=== PATIENT | male | born 1965 | race Hispanic/Latino ===

== ENCOUNTER 2018-05-03 17:06 | Inpatient (IN) | payer MEDICAID ==
[2018-05-03 17:36] VITALS: BMI 26.6
[2018-05-03 18:03] LABS: BASO # 0.03 K/mm3 (0.0-2.0); BASO % 0.3 % (0.0-3.0); EOS # 0.1 (0.0-0.7); EOS % 1.2 % (1.5-5.0); LYMPH # 2.1 (1.2-3.4); LYMPH % 21.8 % (22.0-35.0); MEAN CORPUSCULAR HEMOGLOBIN 28.5 pg (25.0-35.0); MEAN CORPUSCULAR HGB CONC 33.5 g/dl (31.0-37.0); MEAN PLATELET VOLUME 9.8 fl (7.0-11.0); MONO # 0.6 (0.1-0.6); MONO % 6.4 % (1.0-6.0); RBC 5.27 10^6/uL (3.5-6.1); RED CELL DISTRIBUTION WIDTH 13.5 % (11.5-14.5); WHITE BLOOD COUNT 9.4 10^3/uL (4.5-11.0)
[2018-05-03 18:13] LABS: ALB/GLOB RATIO 1.3 (1.1-1.8); ALBUMIN 4.7 g/dL (3.0-4.8); ALT/SGPT 51 U/L (7-56); AST/SGOT 43 U/L (17-59); BLOOD UREA NITROGEN 19 mg/dL (7-21); CALCIUM 9.9 mg/dL (8.4-10.5); GFR NON-AFRICAN AMERICAN > 60
[2018-05-03] MEDS ORDERED: DiphenhydrAMINE 50 mg/ml Inj IVP STA (18:15)
--- NOTE | 2018-05-03 18:26 | ED PDOC ---
Arrival/HPI <Luci Lauren - Last Filed: 05/04/18 09:10> - General Historian: Patient - History of Present Illness Narrative History of Present Illness (Text): 05/03/18 18:20 A 53 year old male, whose past medical history includes panic attacks, presents to the emergency department complaining of panic attack. 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 States he feels anxious and shaky at this time. Patient denies any headache, dizziness, fever, chills, SI/HI, hallucinations, or any other complaints at this time. <Olga oCronado PA-C - Last Filed: 05/04/18 16:49> - General Chief Complaint: Psychiatric Evaluation Time Seen by Provider: 05/03/18 17:17 Past Medical History - Provider Review Nursing Documentation Reviewed: Yes - Psychiatric Hx Substance Use: No <Olga Coronado PA-C - Last Filed: 05/04/18 16:49> Family/Social History - Physician Review Nursing Documentation Reviewed: Yes Family/Social History: No Known Family HX Smoking Status: Unknown If Ever Smoked Hx Alcohol Use: No Hx Substance Use: No <Olga Coronado PA-C - Last Filed: 05/04/18 16:49> Allergies/Home Meds <Luci Lauren - Last Filed: 05/04/18 09:10> <Olga Coronado PA-C - Last Filed: 05/04/18 16:49> Allergies/Adverse Reactions: Allergies Unobtainable Allergy (Verified 05/03/18 17:28) Home Medications: Home Meds Medication Instructions Recorded Confirmed Unobtainable 05/03/18 05/03/18 Review of Systems - Physician Review All systems were reviewed & negative as marked: Yes - Review of Systems Constitutional: absent: Fevers, Night Sweats Respiratory: absent: SOB, Cough Cardiovascular: absent: Chest Pain Gastrointestinal: absent: Abdominal Pain, Diarrhea, Nausea, Vomiting Neurological: absent: Headache, Dizziness Psychiatric: Anxiety (panic attack). absent: Depression, Suicidal Ideation (and no HI), Other (no hallucinations) <Olga Coronado PA-C - Last Filed: 05/04/18 16:49> Physical Exam Vital Signs Temp Pulse Resp BP Pulse Ox 05/03/18 22:50 105 H 18 168/97 H 95 05/03/18 22:08 98 H 190/114 H 05/03/18 21:47 99 H 18 187/113 H 95 05/03/18 21:18 101 H 14 187/114 H 94 L 05/03/18 21:04 102 H 17 187/115 H 94 L 05/03/18 20:48 107 H 14 185/110 H 94 L 05/03/18 20:33 108 H 14 182/119 H 93 L 05/03/18 20:19 108 H 18 191/118 H 93 L 05/03/18 20:02 110 H 17 190/120 H 94 L 05/03/18 19:47 102 H 14 181/106 H 93 L 05/03/18 19:32 108 H 12 181/115 H 96 05/03/18 19:17 107 H 14 179/111 H 96 05/03/18 19:04 101 H 18 189/97 H 97 05/03/18 19:02 103 H 14 169/97 H 97 05/03/18 17:51 97.5 F L 106 H 18 163/99 H 93 L <Luci Lauren - Last Filed: 05/04/18 09:10> Vital Signs Reviewed: Yes Vital Signs Temp Pulse Resp BP Pulse Ox 05/03/18 17:51 97.5 F L 106 H 18 163/99 H 93 L Temperature: Afebrile Blood Pressure: Normal Pulse: Regular Respiratory Rate: Normal Appearance: Positive for: Well-Appearing, Non-Toxic, Comfortable Pain Distress: None Mental Status: Positive for: Alert and Oriented X 3 Finger Stick Blood Glucose: 138 - Systems Exam Head: Present: Atraumatic, Normocephalic Pupils: Present: PERRL Extroacular Muscles: Present: EOMI Conjunctiva: Present: Normal Mouth: Present: Moist Mucous Membranes Neck: Present: Normal Range of Motion Respiratory/Chest: Present: Clear to Auscultation, Good Air Exchange. No: Respiratory Distress, Accessory Muscle Use Cardiovascular: Present: Regular Rate and Rhythm, Normal S1, S2. No: Murmurs Abdomen: No: Tenderness, Distention, Peritoneal Signs Back: Present: Normal Inspection Upper Extremity: Present: Normal Inspection. No: Cyanosis, Edema Lower Extremity: Present: Normal Inspection. No: Edema Neurological: Present: GCS=15, CN II-XII Intact, Speech Normal Skin: Present: Warm, Dry, Normal Color. No: Rashes Psychiatric: Present: Alert, Oriented x 3, Normal Insight, Normal Concentration <Olga Coronado PA-C - Last Filed: 05/04/18 16:49> Medical Decision Making ED Course and Treatment: 05/04/18 09:10 Patient seen and evaluated with KAYA. History attempted from patient but also obtained from EMS personnel. Reportedly the patient called ambulance on his own stating he "had a a panic attack" and "took a bunch of pain pills". Patient is extremely difficulty to interview as he does not focus on questions or look at interviewer directly on initial evaluation. He will ambulate and walk to stretcher. He will also open his eyes to command and attempt to answer some ques tions in slow mumbled voice. He is afebrile. No signs of obvious trauma noted or reported. When asked if he was suicidal or attempted to intentionally overdose he closes his eyes and does not answer questions. He was placed on monitor and serial exams. He was noted to be tachycardic, hypertensive, flushed with serial exams. He reported generalized pain but was not specific. He was cooperative and not agitated in the ED. IV line and fluids administered. He was afebrile. Not tremulous. He was not able to specify what mediation or drugs he ingested. No respiratory distress noted. No focal weakness noted. No petechial rash. NO tremors. His acetmainophen level was found to be elevated. He is still unable to specify what medication he took with serial exams, or how much. Poison control consult ed. Acetadote ordered with consultation of poison control. He remains tachycardic although imporved. Hypertension persists but improved. Patient's EKG reveals sinus tahycardia with widened qrs. Bicarbonate ordered after consultation with poison control as there is no prior EKG to compare and cannot exclude any potential cardiotoxic ingestions. NO HYPOTENSION noted while in ED. His neruo status and interaction appears improved with serial exams. Will admit to ICU, case d/w Dr. Lvoe, thread cutter and Poison Control updated with patient's repeat EKG, exam and labs. - Critical Care Critical Care Minutes: 60 minutes - Lab Interpretations Lab Results: PT 12.3 SECONDS (9.4-12.5) 05/03/18 20:40 INR 1.11 05/03/18 20:40 APTT 38.8 Seconds (26.9-38.3) H 05/03/18 20:40 Troponin I < 0.01 ng/mL 05/04/18 05:40 Total Bilirubin 0.5 mg/dL (0.2-1.3) 05/04/18 05:40 AST 35 U/L (17-59) 05/04/18 05:40 ALT 43 U/L (7-56) 05/04/18 05:40 Alkaline Phosphatase 129 U/L (38-126) H D 05/04/18 05:40 Total Protein 7.4 g/dL (5.8-8.3) 05/04/18 05:40 Albumin 4.3 g/dL (3.0-4.8) 05/04/18 05:40 Globulin 3.1 gm/dL 05/04/18 05:40 Albumin/Globulin Ratio 1.4 (1.1-1.8) 05/04/18 05:40 Urine Color Yellow (YELLOW) 05/03/18 18:55 Urine Appearance Clear (CLEAR) 05/03/18 18:55 Urine pH 5.5 (4.7-8.0) 05/03/18 18:55 Ur Specific [place] >= 1.030 (1.005-1.035) 05/03/18 18:55 Urine Protein 30 mg/dL (<30 mg/dL) H 05/03/18 18:55 Urine Glucose (UA) Negative mg/dL (NEGATIVE) 05/03/18 18:55 Urine Ketones 15 mg/dL (NEGATIVE) H 05/03/18 18:55 Urine Blood Trace-intact (NEGATIVE) H 05/03/18 18:55 Urine Nitrate Negative (NEGATIVE) 05/03/18 18:55 Urine Bilirubin Moderate (NEGATIVE) H 05/03/18 18:55 Urine Urobilinogen 1.0 E.U./dL (<1 E.U./dL) H 05/03/18 18:55 Ur Leukocyte Esterase Negative John/uL (NEGATIVE) 05/03/18 18:55 Urine RBC 2 - 5 /hpf (0-2) H 05/03/18 18:55 Urine WBC 0 - 2 /hpf (0-6) 05/03/18 18:55 Ur Epithelial Cells None /hpf (0-5) 05/03/18 18:55 Urine Bacteria Few /hpf (NONE) 05/03/18 18:55 - RAD Interpretation Radiology Orders: 05/03/18 17:28 CHEST PORTABLE [RAD] Stat - Medication Orders Current Medication Orders: Hydralazine HCl (Apresoline) 10 mg IVP STAT WENDY Last Admin: 05/03/18 22:08 Dose: 10 mg IVP Administration Document 05/03/18 22:08 JOL (Rec: 05/03/18 22:09 [id number] Charges for Administration # of IVP Administrations 1 APR Pulse and Blood Pressure Document 05/03/18 22:08 JOL (Rec: 05/03/18 22:09 [id number]) Pulse Pulse Rate (60-90 beats/min) 98 Blood Pressure Blood Pressure (100/60-150/90 mm Hg) 190/114 Hydralazine HCl (Apresoline) 10 mg IVP Q6 PRN PRN Reason: Systolic Blood Pressure Acetylcysteine 7,930 mg/ (Dextrose) 1,039.65 mls @ 62.5 mls/hr IV .[id number] ONE Stop: 05/04/18 12:12 Last Admin: 05/04/18 01:40 Dose: 62.5 mls/hr eMAR Start Stop Document 05/04/18 01:40 MHA (Rec: 05/04/18 01:41 MHA [id number]) Intravenous Solution Start Date 05/04/18 Start Time 01:41 Lorazepam (Ativan) 1 mg IVP Q6H PRN; Protocol PRN Reason: Agitation Pantoprazole Sodium (Protonix Inj) 40 mg IVP DAILY WENDY Discontinued Medications Diphenhydramine HCl (Benadryl) 25 mg IVP STAT STA Stop: 05/03/18 18:16 Last Admin: 05/03/18 18:29 Dose: 25 mg IVP Administration Document 05/03/18 18:29 BB (Rec: 05/03/18 18:29 BB [id number]) Charges for Administration # of IVP Administrations 1 Famotidine (Pepcid) 20 mg IVP STAT STA Stop: 05/03/18 18:14 Last Admin: 05/03/18 18:29 Dose: 20 mg IVP Administration Document 05/03/18 18:29 BB (Rec: 05/03/18 18:29 BB [id number]) Charges for Administration # of IVP Administrations 1 Acetylcysteine 11,895 mg/ (Dextrose) 259.475 mls @ 200 mls/hr IV .Q1H18M ONE Stop: 05/03/18 20:45 Last Admin: 05/03/18 20:08 Dose: 200 mls/hr eMAR Start Stop Document 05/03/18 20:08 JOL (Rec: 05/03/18 20:09 JOL [id number]) Intravenous Solution Start Date 05/03/18 Start Time 20:08 End Date 05/03/18 End time 21:26 Total Infusion Time 78 Acetylcysteine 3,965 mg/ (Dextrose) 519.825 mls @ 125 mls/hr IV .Q4H10M ONE Stop: 05/03/18 23:43 Last Admin: 05/03/18 21:18 Dose: 125 mls/hr eMAR Start Stop Document 05/03/18 21:18 JOL (Rec: 05/03/18 21:19 JOL [id number]) Intravenous Solution Start Date 05/03/18 Start Time 21:18 End Date 05/04/18 End time 01:28 Total Infusion Time 250 Magnesium Sulfate/Dextrose (Magnesium Sulfate 1 Gm/100 Ml D5w) 1 gm in 100 mls @ 100 mls/hr IVPB ONCE ONE Stop: 05/03/18 20:58 Last Admin: 05/03/18 20:09 Dose: 100 mls/hr eMAR Start Stop Document 05/03/18 20:09 JOL (Rec: 05/03/18 20:09 JOL [id number]) Intravenous Solution Start Date 05/03/18 Start Time 20:09 End Date 05/03/18 End time 21:09 Total Infusion Time 60 Methylprednisolone (Solu-Medrol) 125 mg IVP ONCE ONE Stop: 05/03/18 18:14 Last Admin: 05/03/18 18:28 Dose: 125 mg IVP Administration Document 05/03/18 18:28 BB (Rec: 05/03/18 18:28 BB [id number]) Charges for Administration # of IVP Administrations 1 Promethazine HCl (Phenergan Inj) 25 mg IM ONCE ONE Stop: 05/03/18 23:54 Last Admin: 05/04/18 00:19 Dose: 25 mg IM Administration Charges Document 05/04/18 00:19 KGD (Rec: 05/04/18 00:25 KGD [id number]) Injection Site MAR Injection Site Left Deltoid Charges for Administration # of IM Administrations 1 Sodium Bicarbonate (Sodium Bicarbonate 8.4% (50 Meq) Syringe) 80 meq IVP ONCE ONE Stop: 05/03/18 19:57 Last Admin: 05/03/18 20:09 Dose: 80 meq IVP Administration Document 05/03/18 20:09 JOL (Rec: 05/03/18 20:09 JOL [id number]) Charges for Administration # of IVP Administrations 1 Sodium Bicarbonate (Sodium Bicarbonate 8.4% (50 Meq) Syringe) 80 meq IVP ONCE ONE Stop: 05/03/18 20:30 Last Admin: 05/03/18 20:33 Dose: 80 meq IVP Administration Document 05/03/18 20:33 JOL (Rec: 05/03/18 20:33 JOL [id number]) Charges for Administration # of IVP Administrations 1 <Luci Lauren - Last Filed: 05/04/18 09:10> ED Course and Treatment: 05/03/18 18:22 Impression: 53 year old male brought in for panic attack. Plan: -- EKG -- Chest X-ray -- Labs -- Urinalysis -- Fingerstick -- Reassess and disposition Progress Notes: 05/03/18 18:20 After EKG was performed, nurse noticed a red, itchy rash all over chest and arms. Currently erythematous rash blanches to trunk and upper extremities. Benadryl, Pepcid, and SOLU-Medrol ordered. FS : 138. CXR : NAD. 1st EKG : ST at 106 bpm, with LAD, LBBB, QRS duration 142 ms, QTc 496 ms. Labs reviewed. Utox : +tylenol level of 99, salicylates <1 19:30 Case was d/w Amol from Poison control, he recommends treatment with acetadote, he advises to give acetadote 1 hr drip, followed by acetadote 4 hr drip, then acetadote 16 hr drip, then he advises to have repeat labs to be done 2 hrs prior to ending of acetadote 16 hr drip, he states to repeat LFTs, INR, and tylenol level. He also recommends giving bicarb 1mEq/kg IVP, considering that the patient's QRS and QTc is prolonged, then to repeat EKG immediately after. He states that if the QRS and QTc is still prolonged to give a 2nd dose of bicarb 1 mEq/kg IVP followed by another repeat EKG. If after 2 treatment of bicarb and there is no improvement of the QRS and QTc interval, then to stop giving bicarb. He also recommends giving Mg IV to raise the patient's Mg level above 2. Bicarb 1 mEq/kg IVP given. Repeat 2nd EKG : ST at 108 bpm, QRS duration 144 ms, QTc 493 ms. 2nd bicarb 1 mEq/kg IVP given. Repeat 3rd EKG : ST at 105 bpm, QRS duration 138 ms, QTc 515 ms. Mg IV 1 g ordered and given. On re-evaluation, patient remains awake, alert, still tachycardic and hypertensive. Rest of the labs reveal, UDS : +opiates/amphetamines/cannabis. +Amphetamines, maybe the likely cause of patient's tachycardia and hypertension. 19:50 Case d/w Dr. [place] and the medical insurance verifier, agrees with plan to admit to ICU, notified of treatment recommended by poison control, which he agrees with. Suggested to Dr. [place] and the medical insurance verifier cardiology consult for abnormal EKG findings. - Lab Interpretations Lab Results: Total Bilirubin 0.8 mg/dL (0.2-1.3) 05/03/18 17:34 AST 43 U/L (17-59) 05/03/18 17:34 ALT 51 U/L (7-56) 05/03/18 17:34 Alkaline Phosphatase 171 U/L (38-126) H 05/03/18 17:34 Total Protein 8.3 g/dL (5.8-8.3) 05/03/18 17:34 Albumin 4.7 g/dL (3.0-4.8) 05/03/18 17:34 Globulin 3.6 gm/dL 05/03/18 17:34 Albumin/Globulin Ratio 1.3 (1.1-1.8) 05/03/18 17:34 - RAD Interpretation Radiology Orders: 05/03/18 17:28 CHEST PORTABLE [RAD] Stat - Medication Orders Current Medication Orders: Discontinued Medications Diphenhydramine HCl (Benadryl) 25 mg IVP STAT STA Stop: 05/03/18 18:16 Famotidine (Pepcid) 20 mg IVP STAT STA Stop: 05/03/18 18:14 Methylprednisolone (Solu-Medrol) 125 mg IVP ONCE ONE Stop: 05/03/18 18:14 <Olga Coronado PA-C - Last Filed: 05/04/18 16:49> - PA / [employer] / Resident Statement MD/DO has reviewed & agrees with the documentation as recorded. - Scribe Statement The provider has reviewed the documentation as recorded by the Vesna Sheets Provider Scribe Attestation: All medical record entries made by the Scribe were at my direction and personally dictated by me. I have reviewed the chart and agree that the record accurately reflects my personal performance of the history, physical exam, medical decision making, and the department course for this patient. I have also personally directed, reviewed, and agree with the discharge instructions and disposition. <Olga Coronado PA-C - Last Filed: 05/04/18 16:49> Disposition/Present on Arrival - Present on Arrival Any Indicators Present on Arrival: No - Disposition Have Diagnosis and Disposition been Completed?: Yes <Luci Lauren - Last Filed: 05/04/18 09:10> - Present on Arrival History of DVT/PE: No History of Uncontrolled Diabetes: No Urinary Catheter: No History of Decub. Ulcer: No History Surgical Site Infection Following: None - Disposition Disposition Time: 20:00 Patient Plan: ICU <Olga Coronado PA-C - Last Filed: 05/04/18 16:49> - Disposition Diagnosis: Tylenol overdose, Amphetamine abuse, Drug abuse, Hypertension Disposition: HOSPITALIZED Patient Problems: Current Active Problems Problem Status Onset Tylenol overdose Acute Amphetamine abuse Acute Drug abuse Acute Hypertension Acute Condition: CRITICAL
--- NOTE | 2018-05-03 18:35 | RAD ---
Date of service: 05/03/2018 HISTORY: possible overdose COMPARISON: No prior. FINDINGS: LUNGS: No active pulmonary disease. Patient is rotated toward the left somewhat accentuating right hilar vascular markings slightly. PLEURA: No significant pleural effusion identified, no pneumothorax apparent. CARDIOVASCULAR: No aortic atherosclerotic calcification present. Normal cardiac size. No pulmonary vascular congestion. OSSEOUS STRUCTURES: No significant abnormalities. VISUALIZED UPPER ABDOMEN: Normal. OTHER FINDINGS: None. IMPRESSION: No acute cardiopulmonary disease appreciated.
[2018-05-03 18:59] LABS: PH,URINE 5.5 (4.7-8.0); URINE BILIRUBIN MODERATE (NEGATIVE); URINE BLOOD TRACE-INTACT (NEGATIVE); URINE GLUCOSE (UA) NEGATIVE (NEGATIVE); URINE LEUKOCYTE ESTERASE NEGATIVE Leu/uL (NEGATIVE); URINE PROTEIN 30 mg/dL (<30 mg/dL)
[2018-05-03 19:03] LABS: URINE APPEARANCE CLEAR (CLEAR); URINE COLOR YELLOW (YELLOW)
[2018-05-03 19:06] LABS: URINE BACTERIA FEW /hpf; URINE WBC 0 - 2 /hpf (0-6)
[2018-05-03 19:24] LABS: PHENCYCLIDINE, UR NEGATIVE (NEGATIVE)
[2018-05-03] MEDS ORDERED: ACETYLCYSTEINE IV ONE ×3 (19:28→19:34)
[2018-05-03] MEDS ORDERED: WATER IV ONE ×3 (19:28→19:34)
[2018-05-03] MEDS ORDERED: DEXTROSE 5% IV ONE ×3 (19:28→19:34)
[2018-05-03 19:43] LABS: SALICYLATE < 1 mg/dL (2.0-20.0)
[2018-05-03] MEDS ORDERED: Sodium Bicarbonate (8.4%) 50 Meq Syringe IVP ONE ×3 (19:56→20:29)
[2018-05-03] MEDS ORDERED: Magnesium Sulfate 1 gm in D5W 1 GM/100 ML BAG IVPB ONE (19:59)
[2018-05-03 20:04] LABS: BARBITURATES, UR NEGATIVE (NEGATIVE); BENZODIAZEPINES, UR NEGATIVE (NEGATIVE)
[2018-05-03 20:05] LABS: OPIATES, UR POSITIVE (NEGATIVE)
[2018-05-03 20:54] LABS: INR 1.11; PARTIAL THROMBOPLASTIN TIME 38.8 Seconds (26.9-38.3); PROTHROMBIN TIME 12.3 SECONDS (9.4-12.5)
[2018-05-03] MEDS ORDERED: Sodium Chloride 0.9% 1,000 ML IV SCH (21:30)
--- NOTE | 2018-05-03 21:51 | CP.PCM.HP ---
<Winnie Aragon - Last Filed: 05/03/18 21:55> History of Present Illness - History of Present Illness History of Present Illness: Winnie Aragon, PGY2, H&P for Dr Montana: CC: panic attack This is a 53 year old male, with PMH depression, panic disorder, herniated discs, is here for a panic attack. Patient reports that he was at home ([facility]) this afternoon, when he started having a panic attack, he took a "bunch of painkillers to help him relax." He states that he received those pills from his neurologist. Then, his neighbor called the ambulance for him. He reports feeling mildly confused, but denies dizziness, syncope, chest pain, nausea, vomiting, fevers, chills, headache, neck pain, sob, abdominal pain, urinary symptoms, leg swelling. Patient reports that he has been feeling down, and does think about hurting himself. Denies homicidal ideations or plan. In ED, vitals stable except for high BP 180s/110s, tylenol level elevated 99, UDS positive for opiates and cannabinoids. EKG showed sinus tachycardia 106 with widened qrs 142 ms and prolonged qtc 496 ms. Poison control called, started on NAC and given 2 doses of sodium bicarb with repeat EKG with qrs 138 ms and qtc 515 ms. Will monitor for now. ROS limited as patient is still confused, uncooperative. PMH: panic disorder, depression, restless leg syndrome, herniated discs PSH: sinus surgery (8 years ago), left knee surgery - torn meniscal tear (20 years ago) All: NKA FH: denies SH: lives by self, currently at [facility]. Quit drinking 20 years ago. + tobacco user, smokes 1 ppd x 35 years. Smokes marijuana daily. Quit heroin, cocaine 10 years ago, used to snort, denies IV drug use. Home Meds: prozac, wellbutrin, pramipexole PMD: [facility] (in [place]) Neurologist: Wes ( in [place]) Present on Admission - Present on Admission Any Indicators Present on Admission: No History of DVT/PE: No History of Uncontrolled Diabetes: No Urinary Catheter: No Decubitus Ulcer Present: No Review of Systems - Review of Systems Systems not reviewed;Unavailable: Altered Mental Status, Intoxicated Past Patient History - Past Social History Smoking Status: Unknown If Ever Smoked - PSYCHIATRIC Hx Substance Use: No - SURGICAL HISTORY Hx Surgeries: No Meds Allergies/Adverse Reactions: Allergies Allergy/AdvReac Type Severity Reaction Status Date / Time Unobtainable Allergy Verified 05/03/18 17:28 Physical Exam - Constitutional Appears: Non-toxic, No Acute Distress - Head Exam Head Exam: ATRAUMATIC, NORMOCEPHALIC - Eye Exam Eye Exam: EOMI, PERRL. absent: Conjunctival injection, Nystagmus, Scleral icterus Pupil Exam: NORMAL ACCOMODATION, PERRL. absent: Irregular, Miosis, Unequal - ENT Exam ENT Exam: Mucous Membranes Dry - Neck Exam Neck exam: Positive for: Full Rom - Respiratory Exam Respiratory Exam: Clear to Auscultation Bilateral, NORMAL BREATHING PATTERN. absent: Accessory Muscle Use, Rhonchi, Wheezes, Stridor - Cardiovascular Exam Cardiovascular Exam: Tachycardia, +S1, +S2. absent: Systolic Murmur - GI/Abdominal Exam GI & Abdominal Exam: Normal Bowel Sounds, Soft. absent: Distended, Firm, Guarding, Organomegaly, Rebound, Tenderness - Extremities Exam Extremities exam: Positive for: normal inspection. Negative for: calf tenderness, pedal edema - Back Exam Back exam: NORMAL INSPECTION - Neurological Exam Neurological exam: Alert Additional comments: oriented to place, situation - Psychiatric Exam Psychiatric exam: Flat Affect - Skin Skin Exam: Normal Color, Warm Results - Vital Signs Recent Vital Signs: Last Vital Signs Temp 97.5 F L 05/03/18 17:51 Pulse 101 H 05/03/18 19:04 Resp 18 05/03/18 19:04 BP 189/97 H 05/03/18 19:04 Pulse Ox 97 05/03/18 19:04 - Labs Result Diagrams: 05/03/18 17:34 05/03/18 17:34 Labs: Laboratory Results - last 24 hr 05/03/18 05/03/18 05/03/18 17:34 17:34 17:34 WBC 9.4 RBC 5.27 Hgb 15.0 Hct 44.8 MCV 85.0 MCH 28.5 MCHC 33.5 RDW 13.5 Plt Count 439 MPV 9.8 Neut % (Auto) 70.3 H Lymph % (Auto) 21.8 L Kerr % (Auto) 6.4 H Eos % (Auto) 1.2 L Baso % (Auto) 0.3 Lymph # (Auto) 2.1 Kerr # (Auto) 0.6 Eos # (Auto) 0.1 Baso # (Auto) 0.03 Absolute Neuts (auto) 6.61 H PT INR APTT Sodium 139 Potassium 4.2 Chloride 102 Carbon Dioxide 24 Anion Gap 16 BUN 19 Creatinine 0.9 Est GFR ( Amer) > 60 Est GFR (Non-Af Amer) > 60 POC Glucose (mg/dL) Random Glucose 160 H Calcium 9.9 Magnesium 1.9 Total Bilirubin 0.8 AST 43 ALT 51 Alkaline Phosphatase 171 H Total Protein 8.3 Albumin 4.7 Globulin 3.6 Albumin/Globulin Ratio 1.3 Urine Color Urine Appearance Urine pH Ur Specific [place] Urine Protein Urine Glucose (UA) Urine Ketones Urine Blood Urine Nitrate Urine Bilirubin Urine Urobilinogen Ur Leukocyte Esterase Urine RBC Urine WBC Ur Epithelial Cells Urine Bacteria Salicylates < 1 L Urine Opiates Screen Urine Methadone Screen Acetaminophen 99.0 H* Ur Barbiturates Screen Ur Phencyclidine Scrn Ur Amphetamines Screen U Benzodiazepines Scrn U Oth Cocaine Metabols U Cannabinoids Screen Alcohol, Quantitative 05/03/18 05/03/18 05/03/18 17:34 18:05 18:55 WBC RBC Hgb Hct MCV MCH MCHC RDW Plt Count MPV Neut % (Auto) Lymph % (Auto) Kerr % (Auto) Eos % (Auto) Baso % (Auto) Lymph # (Auto) Kerr # (Auto) Eos # (Auto) Baso # (Auto) Absolute Neuts (auto) PT INR APTT Sodium Potassium Chloride Carbon Dioxide Anion Gap BUN Creatinine Est GFR ( Amer) Est GFR (Non-Af Amer) POC Glucose (mg/dL) 138 H Random Glucose Calcium Magnesium Total Bilirubin AST ALT Alkaline Phosphatase Total Protein Albumin Globulin Albumin/Globulin Ratio Urine Color Yellow Urine Appearance Clear Urine pH 5.5 Ur Specific [place] >= 1.030 Urine Protein 30 H Urine Glucose (UA) Negative Urine Ketones 15 H Urine Blood Trace-intact H Urine Nitrate Negative Urine Bilirubin Moderate H Urine Urobilinogen 1.0 H Ur Leukocyte Esterase Negative Urine RBC 2 - 5 H Urine WBC 0 - 2 Ur Epithelial Cells None Urine Bacteria Few Salicylates Urine Opiates Screen Urine Methadone Screen Acetaminophen Ur Barbiturates Screen Ur Phencyclidine Scrn Ur Amphetamines Screen U Benzodiazepines Scrn U Oth Cocaine Metabols U Cannabinoids Screen Alcohol, Quantitative < 10 05/03/18 05/03/18 18:55 20:40 WBC RBC Hgb Hct MCV MCH MCHC RDW Plt Count MPV Neut % (Auto) Lymph % (Auto) Kerr % (Auto) Eos % (Auto) Baso % (Auto) Lymph # (Auto) Kerr # (Auto) Eos # (Auto) Baso # (Auto) Absolute Neuts (auto) PT 12.3 INR 1.11 APTT 38.8 H Sodium Potassium Chloride Carbon Dioxide Anion Gap BUN Creatinine Est GFR ( Amer) Est GFR (Non-Af Amer) POC Glucose (mg/dL) Random Glucose Calcium Magnesium Total Bilirubin AST ALT Alkaline Phosphatase Total Protein Albumin Globulin Albumin/Globulin Ratio Urine Color Urine Appearance Urine pH Ur Specific [place] Urine Protein Urine Glucose (UA) Urine Ketones Urine Blood Urine Nitrate Urine Bilirubin Urine Urobilinogen Ur Leukocyte Esterase Urine RBC Urine WBC Ur Epithelial Cells Urine Bacteria Salicylates Urine Opiates Screen Positive H Urine Methadone Screen Negative Acetaminophen Ur Barbiturates Screen Negative Ur Phencyclidine Scrn Negative Ur Amphetamines Screen Positive H U Benzodiazepines Scrn Negative U Oth Cocaine Metabols Negative U Cannabinoids Screen Positive H Alcohol, Quantitative Assessment & Plan - Assessment and Plan (Free Text) Assessment: This is a 53 year old male with PMH panic disorder, depression, restless leg syndrome, herniated discs, is here for panic disorder, suicidal ideations, found to have tylenol overdose, admitted to ICU for further observation: Tylenol overdose: - Tylenol level 99 - UDS positive for opiates, tylenol, cannabinoids - AST/ALT within normal limits, ALP 171. continue to monitor. - initial troponin negative. F/u troponin q6h - initial EKG shows HR 106, Sinus tachycardia, QRS 142 ms, QTc 496 ms. - Mg 1.9 - ED called poison control, advised to keep Mag>2.0, give NAC x 3 treatments, give Sodium bicarbonate for prolonged qrs and repeat ekg after to note any changes. If no changes noted, continue to monitor. Instructed to get LFTs, tylenol level, INR at 16th of 18th hour of NAC infusion. - EKG after 2 doses of bicarb shows HR 105, sinus tachycardia, QRS 138 ms, qtc 515 ms. - Will repeat EKG in AM. - tylenol, cmp in AM. - GI Dr Loomis consulted. follow up recs. Suicidal ideations: - 1:1 observation - Psychiatry consulted. follow up recs. - Advised nursing staff that patient cannot leave AMA. - continue to monitor closely High blood pressure: - BP 187/113, will give hydralazine prn - continue to monitor PPX: protonix, scds Will monitor in ICU NPO Case seen, discussed with attending, Dr Montana. <Gabby Montana - Last Filed: 05/04/18 00:33> Results - Vital Signs Recent Vital Signs: Last Vital Signs Temp 98.6 F 05/03/18 23:36 Pulse 105 H 05/03/18 22:50 Resp 24 05/03/18 23:36 BP 168/97 H 05/03/18 22:50 Pulse Ox 95 05/03/18 22:50 - Labs Result Diagrams: 05/03/18 17:34 05/03/18 17:34 Labs: Laboratory Results - last 24 hr 05/03/18 05/03/18 05/03/18 17:34 17:34 17:34 WBC 9.4 RBC 5.27 Hgb 15.0 Hct 44.8 MCV 85.0 MCH 28.5 MCHC 33.5 RDW 13.5 Plt Count 439 MPV 9.8 Neut % (Auto) 70.3 H Lymph % (Auto) 21.8 L Kerr % (Auto) 6.4 H Eos % (Auto) 1.2 L Baso % (Auto) 0.3 Lymph # (Auto) 2.1 Kerr # (Auto) 0.6 Eos # (Auto) 0.1 Baso # (Auto) 0.03 Absolute Neuts (auto) 6.61 H PT INR APTT Sodium 139 Potassium 4.2 Chloride 102 Carbon Dioxide 24 Anion Gap 16 BUN 19 Creatinine 0.9 Est GFR ( Amer) > 60 Est GFR (Non-Af Amer) > 60 POC Glucose (mg/dL) Random Glucose 160 H Calcium 9.9 Magnesium 1.9 Total Bilirubin 0.8 AST 43 ALT 51 Alkaline Phosphatase 171 H Troponin I Total Protein 8.3 Albumin 4.7 Globulin 3.6 Albumin/Globulin Ratio 1.3 Urine Color Urine Appearance Urine pH Ur Specific [place] Urine Protein Urine Glucose (UA) Urine Ketones Urine Blood Urine Nitrate Urine Bilirubin Urine Urobilinogen Ur Leukocyte Esterase Urine RBC Urine WBC Ur Epithelial Cells Urine Bacteria Salicylates < 1 L Urine Opiates Screen Urine Methadone Screen Acetaminophen 99.0 H* Ur Barbiturates Screen Ur Phencyclidine Scrn Ur Amphetamines Screen U Benzodiazepines Scrn U Oth Cocaine Metabols U Cannabinoids Screen Alcohol, Quantitative 05/03/18 05/03/18 05/03/18 17:34 17:34 18:05 WBC RBC Hgb Hct MCV MCH MCHC RDW Plt Count MPV Neut % (Auto) Lymph % (Auto) Kerr % (Auto) Eos % (Auto) Baso % (Auto) Lymph # (Auto) Kerr # (Auto) Eos # (Auto) Baso # (Auto) Absolute Neuts (auto) PT INR APTT Sodium Potassium Chloride Carbon Dioxide Anion Gap BUN Creatinine Est GFR ( Amer) Est GFR (Non-Af Amer) POC Glucose (mg/dL) 138 H Random Glucose Calcium Magnesium Total Bilirubin AST ALT Alkaline Phosphatase Troponin I < 0.01 Total Protein Albumin Globulin Albumin/Globulin Ratio Urine Color Urine Appearance Urine pH Ur Specific [place] Urine Protein Urine Glucose (UA) Urine Ketones Urine Blood Urine Nitrate Urine Bilirubin Urine Urobilinogen Ur Leukocyte Esterase Urine RBC Urine WBC Ur Epithelial Cells Urine Bacteria Salicylates Urine Opiates Screen Urine Methadone Screen Acetaminophen Ur Barbiturates Screen Ur Phencyclidine Scrn Ur Amphetamines Screen U Benzodiazepines Scrn U Oth Cocaine Metabols U Cannabinoids Screen Alcohol, Quantitative < 10 05/03/18 05/03/18 05/03/18 18:55 18:55 20:40 WBC RBC Hgb Hct MCV MCH MCHC RDW Plt Count MPV Neut % (Auto) Lymph % (Auto) Kerr % (Auto) Eos % (Auto) Baso % (Auto) Lymph # (Auto) Kerr # (Auto) Eos # (Auto) Baso # (Auto) Absolute Neuts (auto) PT 12.3 INR 1.11 APTT 38.8 H Sodium Potassium Chloride Carbon Dioxide Anion Gap BUN Creatinine Est GFR ( Amer) Est GFR (Non-Af Amer) POC Glucose (mg/dL) Random Glucose Calcium Magnesium Total Bilirubin AST ALT Alkaline Phosphatase Troponin I Total Protein Albumin Globulin Albumin/Globulin Ratio Urine Color Yellow Urine Appearance Clear Urine pH 5.5 Ur Specific [place] >= 1.030 Urine Protein 30 H Urine Glucose (UA) Negative Urine Ketones 15 H Urine Blood Trace-intact H Urine Nitrate Negative Urine Bilirubin Moderate H Urine Urobilinogen 1.0 H Ur Leukocyte Esterase Negative Urine RBC 2 - 5 H Urine WBC 0 - 2 Ur Epithelial Cells None Urine Bacteria Few Salicylates Urine Opiates Screen Positive H Urine Methadone Screen Negative Acetaminophen Ur Barbiturates Screen Negative Ur Phencyclidine Scrn Negative Ur Amphetamines Screen Positive H U Benzodiazepines Scrn Negative U Oth Cocaine Metabols Negative U Cannabinoids Screen Positive H Alcohol, Quantitative Attending/Attestation - Attestation I have personally seen and examined this patient.: Yes I have fully participated in the care of the patient.: Yes I have reviewed all pertinent clinical information: Yes Notes (Text): 05/04/18 00:32 seen and examined. Discussed with resident. Agree with note.
[2018-05-03] MEDS ORDERED: Dexmedetomidine 400mcg/100mL 400 MCG/100 ML BOTTLE IV PRN (23:37)
--- NOTE | 2018-05-04 00:39 | CP.PCM.PN ---
<Winnie Aragon - Last Filed: 05/04/18 00:37> Subjective - Date & Time of Evaluation Date of Evaluation: 05/04/18 Time of Evaluation: 00:37 - Subjective Subjective: Ramirez gutierrez called on the patient as patient was agitated and trying to leave. Nurse, security guards at bedside. Explained to patient the need to stay and receive treatment. Promethazone 20 mg IM given x1. Patient more cooperative, calmer, in bed. Soft restraints in place. Continue to monitor. ativan 1 mg IV q6 prn agitation in place. Objective - Vital Signs/Intake and Output Vital Signs (last 24 hours): Temp Pulse Resp BP Pulse Ox 98.6 F 105 H 24 168/97 H 95 05/03/18 23:36 05/03/18 22:50 05/03/18 23:36 05/03/18 22:50 05/03/18 22:50 - Medications Medications: Current Medications Hydralazine HCl (Apresoline) 10 mg IVP STAT WENDY Last Admin: 05/03/18 22:08 Dose: 10 mg Hydralazine HCl (Apresoline) 10 mg IVP Q6 PRN PRN Reason: Systolic Blood Pressure Acetylcysteine 7,930 mg/ (Dextrose) 1,039.65 mls @ 62.5 mls/hr IV .[id number] ONE Stop: 05/04/18 12:12 Lorazepam (Ativan) 1 mg IVP Q6H PRN; Protocol PRN Reason: Agitation Pantoprazole Sodium (Protonix Inj) 40 mg IVP DAILY WENDY - Labs Labs: 05/03/18 17:34 05/03/18 17:34 PT 12.3 SECONDS (9.4-12.5) 05/03/18 20:40 INR 1.11 05/03/18 20:40 APTT 38.8 Seconds (26.9-38.3) H 05/03/18 20:40 <Gabby Montana - Last Filed: 05/04/18 06:41> Objective - Vital Signs/Intake and Output Vital Signs (last 24 hours): Temp Pulse Resp BP Pulse Ox 98.6 F 101 H 20 145/103 H 94 L 05/03/18 23:36 05/04/18 05:30 05/04/18 05:30 05/04/18 05:30 05/04/18 05:30 - Medications Medications: Current Medications Hydralazine HCl (Apresoline) 10 mg IVP STAT WENDY Last Admin: 05/03/18 22:08 Dose: 10 mg Hydralazine HCl (Apresoline) 10 mg IVP Q6 PRN PRN Reason: Systolic Blood Pressure Acetylcysteine 7,930 mg/ (Dextrose) 1,039.65 mls @ 62.5 mls/hr IV .[id number] ONE Stop: 05/04/18 12:12 Last Admin: 05/04/18 01:40 Dose: 62.5 mls/hr Lorazepam (Ativan) 1 mg IVP Q6H PRN; Protocol PRN Reason: Agitation Pantoprazole Sodium (Protonix Inj) 40 mg IVP DAILY WENDY - Labs Labs: 05/04/18 05:40 05/03/18 17:34 PT 12.3 SECONDS (9.4-12.5) 05/03/18 20:40 INR 1.11 05/03/18 20:40 APTT 38.8 Seconds (26.9-38.3) H 05/03/18 20:40 Attending/Attestation - Attestation I have personally seen and examined this patient.: No I have fully participated in the care of the patient.: Yes I have reviewed all pertinent clinical information, including history, physical exam and plan: Yes Notes (Text): 05/04/18 06:41 not seen during code dukes.
[2018-05-04 06:25] LABS: BASO # 0.02 K/mm3 (0.0-2.0); BASO % 0.3 % (0.0-3.0); HEMOGLOBIN 14.8 g/dL (14.0-18.0); LYMPH # 1.1 (1.2-3.4); LYMPH % 14.5 % (22.0-35.0); MEAN CELL VOLUME 83.3 fl (80.0-105.0); MEAN CORPUSCULAR HEMOGLOBIN 28.5 pg (25.0-35.0); MEAN CORPUSCULAR HGB CONC 34.2 g/dl (31.0-37.0); MEAN PLATELET VOLUME 9.7 fl (7.0-11.0); MONO # 0.2 (0.1-0.6); MONO % 2.6 % (1.0-6.0); RBC 5.2 10^6/uL (3.5-6.1); RED CELL DISTRIBUTION WIDTH 13.5 % (11.5-14.5); WHITE BLOOD COUNT 7.6 10^3/uL (4.5-11.0)
[2018-05-04 06:47] LABS: TROPONIN I < 0.01 ng/mL
[2018-05-04 07:42] LABS: ALB/GLOB RATIO 1.4 (1.1-1.8); ALBUMIN 4.3 g/dL (3.0-4.8); ALT/SGPT 43 U/L (7-56); AST/SGOT 35 U/L (17-59); BLOOD UREA NITROGEN 13 mg/dL (7-21); CALCIUM 9.4 mg/dL (8.4-10.5); GFR NON-AFRICAN AMERICAN > 60
--- NOTE | 2018-05-04 10:37 | PN ---
DATE: 05/04/2018 [employer] TECHNICAL MANAGER NOTE AT [facility] SUBJECTIVE: The patient is resting in bed, became very anxious and combative this morning, Ramirez Harris was called. The patient was given medications to relax. He had demanded to leave the hospital at that time. The patient now is sleeping. No respiratory distress. No complaints of pain. He did present initially with panic attacks and labs had shown that he had a Tylenol overdose as well as having other drugs such as amphetamines and cannabinoids in his bloodstream. PHYSICAL EXAMINATION VITAL SIGNS: Note that his temperature is 98.6, pulse is 78, respirations are 16, and BP is 162/86. SKIN: Warm and dry. HEENT: Head atraumatic, normocephalic. Eyes reactive to light. Ear, nose and throat seem to be within normal limits. NECK: Supple. No JVD. No thyroid enlargement. No lymph nodes. CARDIOPULMONARY: Heart has a regular rate and rhythm. Normal S1, S2. LUNGS: Reveal good breath sounds bilaterally. ABDOMEN: Soft, nontender. Normal bowel sounds. No organomegaly noted. GENITALIA: Deferred. RECTAL: Deferred. MUSCULOSKELETAL: No joint deformities. EXTREMITIES: Reveal no edema. NEUROLOGIC: He seems to be grossly intact. LABORATORY DATA: His white count is 7.6, hemoglobin is 14.8, hematocrit 43.3, with platelets of 437,000. Sodium is 137, potassium 4.0, chloride 101, CO2 of 25, with a BUN of 13, creatinine is 0.5, and a glucose of 149. The patient's chest x-ray is within normal limits. Toxicology reveals that urine opioid screen was positive. The patient has a high level of Tylenol and positive for amphetamines as well as cannabinoids. As stated above, his chest x-ray is normal. IMPRESSION: This patient presents with a Tylenol overdose and also has panic attacks and anxiety. The patient has cannabinoids as well as amphetamines in his bloodstream as well. PLAN: The patient is a one-to-one observation at this time. A Psychiatric consult and GI consult has been called. The patient is on acetylcysteine protocol for Tylenol overdose and is getting Apresoline for blood pressure. As stated above, he is one-to-one. He is also on Ativan p.r.n. and getting Protonix. At this time, we will follow closely and treat aggressively along with the other consultants and the primary care doctor. Edwin Daugherty MD
--- NOTE | 2018-05-04 12:02 | CP.PCM.PN ---
<Zen Brothers - Last Filed: 05/04/18 12:29> Subjective - Date & Time of Evaluation Date of Evaluation: 05/04/18 Time of Evaluation: 11:58 - Subjective Subjective: PGY-1 Medicine progress note for Dr. Beth Patient seen and examined at bedside. 1:1 sitter at bedside. Patient denies any fevers, shortness of breath, chest pain, abdominal pain, nausea, vomiting, or any other complaints. Objective - Vital Signs/Intake and Output Vital Signs (last 24 hours): Temp Pulse Resp BP Pulse Ox 98.6 F 73 107 H 140/77 91 L 05/03/18 23:36 05/04/18 10:37 05/04/18 09:30 05/04/18 10:37 05/04/18 09:30 - Medications Medications: Current Medications Hydralazine HCl (Apresoline) 10 mg IVP STAT [facility] Last Admin: 05/03/18 22:08 Dose: 10 mg Hydralazine HCl (Apresoline) 10 mg IVP Q6 PRN PRN Reason: Systolic Blood Pressure Acetylcysteine 7,930 mg/ (Dextrose) 1,039.65 mls @ 62.5 mls/hr IV .[id number] ONE Stop: 05/04/18 12:12 Last Admin: 05/04/18 01:40 Dose: 62.5 mls/hr Lisinopril (Zestril) 10 mg PO DAILY [facility] Last Admin: 05/04/18 10:37 Dose: 10 mg Lorazepam (Ativan) 1 mg IVP Q6H PRN; Protocol PRN Reason: Agitation Pantoprazole Sodium (Protonix Inj) 40 mg IVP DAILY [facility] Last Admin: 05/04/18 09:21 Dose: 40 mg - Labs Labs: 05/04/18 05:40 05/04/18 05:40 PT 12.3 SECONDS (9.4-12.5) 05/03/18 20:40 INR 1.11 05/03/18 20:40 APTT 38.8 Seconds (26.9-38.3) H 05/03/18 20:40 - Constitutional Appears: Well, Non-toxic, No Acute Distress - Head Exam Head Exam: ATRAUMATIC, NORMAL INSPECTION - Eye Exam Eye Exam: EOMI, PERRL Pupil Exam: NORMAL ACCOMODATION, PERRL - ENT Exam ENT Exam: Mucous Membranes Moist - Neck Exam Neck Exam: Normal Inspection - Respiratory Exam Respiratory Exam: Clear to Ausculation Bilateral. absent: Rales, Rhonchi, Wheezes, Respiratory Distress - Cardiovascular Exam Cardiovascular Exam: RRR, +S1, +S2. absent: Gallop, Rubs, Murmur - GI/Abdominal Exam GI & Abdominal Exam: Soft, Normal Bowel Sounds. absent: Tenderness - Extremities Exam Extremities Exam: absent: Calf Tenderness, Pedal Edema - Neurological Exam Neurological Exam: Alert, Awake, CN II-XII Intact - Psychiatric Exam Psychiatric exam: Flat Affect - Skin Skin Exam: Dry, Intact, Normal Color, Warm Assessment and Plan - Assessment and Plan (Free Text) Assessment: Patient is a 53 year old male with PMH panic disorder, depression, restless leg syndrome, herniated discs, is here for panic disorder, suicidal ideations, found to have tylenol overdose, admitted to ICU for further observation. Plan: Tylenol overdose: - Tylenol level <10 now - UDS positive for opiates, amphetamines, cannabinoids - AST/ALT within normal limits, ALP 171. continue to monitor. - Troponins negative X 2 - Keep Mag>2.0 - Mg 2.2 - Give NAC x 3 treatments - Repeat CMP, Mg, INR: pending - GI consulted, Dr. Loomis Suicidal ideations: - 1:1 observation - Psychiatry consulted - Advised nursing staff that patient cannot leave AMA - Continue to monitor closely High blood pressure: - Hydralazine prn - Continue to monitor PPX: protonix, scds Patient seen and case discussed with attending, Dr. Kirit Brothers, PGY-1 <Leyla Beth - Last Filed: 05/04/18 13:03> Objective - Vital Signs/Intake and Output Vital Signs (last 24 hours): Temp Pulse Resp BP Pulse Ox 98.6 F 73 107 H 140/77 91 L 05/03/18 23:36 05/04/18 10:37 05/04/18 09:30 05/04/18 10:37 05/04/18 09:30 - Medications Medications: Current Medications Aripiprazole (Abilify) 5 mg PO HS WENDY Bupropion HCl (Wellbutrin) 100 mg PO DAILY WENDY Fluoxetine HCl (Prozac) 20 mg PO DAILY [facility] Hydralazine HCl (Apresoline) 10 mg IVP Q6 PRN PRN Reason: Systolic Blood Pressure Lisinopril (Zestril) 10 mg PO DAILY [facility] Last Admin: 05/04/18 10:37 Dose: 10 mg Lorazepam (Ativan) 1 mg IVP Q6H PRN; Protocol PRN Reason: Agitation Pantoprazole Sodium (Protonix Inj) 40 mg IVP DAILY [facility] Last Admin: 05/04/18 09:21 Dose: 40 mg - Labs Labs: 05/04/18 05:40 05/04/18 05:40 PT 12.3 SECONDS (9.4-12.5) 05/03/18 20:40 INR 1.11 05/03/18 20:40 APTT 38.8 Seconds (26.9-38.3) H 05/03/18 20:40 Attending/Attestation - Attestation I have personally seen and examined this patient.: Yes I have fully participated in the care of the patient.: Yes I have reviewed all pertinent clinical information, including history, physical exam and plan: Yes Notes (Text): 05/04/18 12:59 Medical record note made by the resident after discussion with my direction and input after the patient was personally seen and examined by me. I have reviewed the chart and agree that the record accurately reflects by personal performance of the history, physical exam, data review, and medical decision-making, in the course for the patient. I have also personally directed the plan of care. 53 year old male with PMH of panic disorder, depression, restless leg syndrome, herniated discs, was admitted last night with panic disorder, suicidal ideation, had intention drug overdose, he is found to have Tylenol overdose, also has Opiate and Amphetamine on urine toxicology, LFT are normal, Patient is on IV acetylcysteine for tylelonol overdose. We will monitor LFT, EKG showe LBBB,blood pressure is running highj, we will add Lisinopril and will also get 2D Echo. Patient is on 1.1 observation..
[2018-05-04 15:48] LABS: ALB/GLOB RATIO 1.3 (1.1-1.8); ALT/SGPT 36 U/L (7-56); AST/SGOT 25 U/L (17-59); BLOOD UREA NITROGEN 14 mg/dL (7-21); CALCIUM 9.6 mg/dL (8.4-10.5); GFR NON-AFRICAN AMERICAN > 60
[2018-05-04 16:16] LABS: INR 1.18; PROTHROMBIN TIME 13.1 SECONDS (9.4-12.5)
--- NOTE | 2018-05-04 18:51 | CON ---
DATE: 05/04/2018 HISTORY OF PRESENT ILLNESS: The patient is a homosexual male who presented to the ER complaining of panic attacks and depression. While he was there he declared he took a handful of unknown pills, though he believed they were painkillers 1 hour prior to admission. The patient reported that he got suicidal thoughts at times and was admitted to the ICU after a similar incident now looking back in 99. The UDS is positive for opioids, amphetamines as well as marijuana. Psychiatry was consulted due to the patient's presentation. He was initially brought in as a Damien Harris, but had indicated his actual name is Nick Benitez. I met with the patient at the bedside in the ICU. The patient is alert and oriented to month, year, circumstances, and location. He is calm and generally cooperative and appears to be in good control. Affect is constricted. The patient can communicate with me well, although he does appear to be evasive and guarded at times about the circumstances, though admits to taking the pills, he eventually admits that it was a suicide attempt. The patient is reluctant to take psychiatric hospitalization, but he is open to it in consideration of his worsening depression and stresses at this time. Apparently, the patient lost his apartment of 13 years a couple of months ago and has currently been living at the [facility], which is not pleasant. He also has been dabbling in drugs and admits to smoking weed as well as using crystal meth weeks ago. He does report that he is now in recovery for alcohol, however, this alcohol problem became a cocaine problem, which became the recreational drug that he is now taking. He admits he is no longer suicidal to this health underwriter, I cannot confirm this and the patient does have a history of prior suicide attempts and hospitalizations at [facility] and [facility]. Presently, as I mentioned he is in fair control, he is coherent. There is no hallucinations. Insight and judgment are considered to be fair. Impulse control is tenuous. PSYCHIATRIC HISTORY: The patient reports prior hospitalizations at [facility] and [facility] a couple of years ago. He is in treatment with Dr. Otero at [facility] for the last 9 months. MEDICATIONS: Reports that he is being prescribed Prozac 20 mg daily, Wellbutrin 100 mg, and Abilify 2 mg which he indicates he is compliant with. SOCIAL HISTORY: The patient was born and raised in [place] . He is single. He is homosexual. He has no children. He lives by himself with a for the last couple of months after being evicted from his apartment of 13 years. He is unemployed. He is currently seeking disability for the last 6 years. He has a history of alcohol dependency which began a cocaine dependency after he stopped drinking alcohol and he stopped taking cocaine and this turned into smoking weed and using crystal meth. Opiates were also found in his urine drug screen. Vital signs and labs were reviewed. RELEVANT PSYCHIATRIC MEDICATIONS: The patient is not on any psychiatric medications except for Ativan 1 mg every 6 hours p.r.n. IMPRESSION: Major depressive disorder, substance induced mood disorder, amphetamine and marijuana abuse, rule out opiate dependency versus abuse, rule out borderline personality disorder, rule out adjustment disorder with depression and anxiety. RECOMMENDATIONS: At this time, the patient needs to be hospitalized and requires one-to-one as he is unpredictable. The patient is open to psychiatric hospitalization, however, he is aware that if he does not sign in voluntarily for screening then involuntary commitment by the [facility] screeners will be requested. Psychiatry will continue to follow up. Next followup will be on 05/05/2018. In the meantime, Prozac, Wellbutrin, and Abilify will be restarted at the low values that were aforementioned. Pepper Chaney MD
--- NOTE | 2018-05-04 19:50 | CARD ---
APPROVED REPORT Date of service: 05/03/2018 EKG Measurement Heart [id number] [place] [id number] <Conclusion> Sinus tachycardia Possible Left atrial enlargement Indeterminate axis Nonspecific intraventricular block Anterolateral infarct, age undetermined Abnormal ECG
--- NOTE | 2018-05-04 19:52 | CARD ---
APPROVED REPORT Date of service: 05/03/2018 EKG Measurement Heart [id number] 170P57 [id number] <Conclusion> Sinus tachycardia Possible Left atrial enlargement Left axis deviation Left bundle branch block Abnormal ECG
--- NOTE | 2018-05-04 20:31 | CON ---
DATE OF CONSULTATION: 05/04/2018 REQUESTING PHYSICIAN: Carlos Low MD REASON FOR CONSULTATION: I have been asked to see this 53-year-old patient who has a history of depression, panic disorder, who took a bunch of pain killers to help him deal with his depression and panic disorder. The patient states that he took 10 Tylenol with Codeine. On admission to the hospital, his acetaminophen level was elevated at 99, this morning it is less than 10. He also had positive opiates, amphetamines and cannabinoids. The patient states that this was not a suicide attempt. The patient was started immediately on N-acetylcysteine. He currently denies any nausea, vomiting or abdominal pain. His liver enzymes are normal. PAST MEDICAL HISTORY: Notable for depression, panic disorder, restless legs syndrome, herniated disks. PAST SURGICAL HISTORY: Notable for knee surgery and sinus surgery. SOCIAL HISTORY: The patient lives at the [facility]. He is a former alcohol abuser. He has smoked up to a pack of cigarettes per day for 35 years. He smokes marijuana. He is a former heroin user. MEDICATIONS AT HOME: Prozac, Wellbutrin and pramipexole. PHYSICAL EXAMINATION: GENERAL: Middle-aged male lying in bed, awake, alert, in no acute distress. VITAL SIGNS: He is afebrile. Blood pressure 140/77, heart rate of 73. HEENT: Reveal sclerae to be white. Conjunctivae pink. NECK: Supple. CHEST: Lungs are clear. HEART: Regular rate and rhythm. ABDOMEN: Soft, nontender. No mass. EXTREMITIES: No edema. LABORATORY DATA: White blood cell count 7.6, hemoglobin 14.8. AST and ALT normal, total bilirubin normal, alkaline phosphatase of 129. IMPRESSION: This is a 53-year-old male with acetaminophen overdose with normal liver enzymes. RECOMMENDATIONS: 1. Complete dosing of N-acetylcysteine. 2. Follow liver enzymes for another 24-48 hours. Damien Loomis MD
--- NOTE | 2018-05-04 22:33 | CARD ---
APPROVED REPORT Date of service: 05/04/2018 EKG Measurement Heart [id number] [id number] <Conclusion> Normal sinus rhythm with sinus arrhythmia Possible Left atrial enlargement Left axis deviation Left bundle branch block Abnormal ECG
--- NOTE | 2018-05-04 22:45 | CARD ---
APPROVED REPORT Date of service: 05/04/2018 EKG Measurement Heart [id number] 170P56 [id number] <Conclusion> Sinus rhythm with marked sinus arrhythmia Possible Left atrial enlargement Left axis deviation Left bundle branch block Abnormal ECG
[2018-05-05] MEDS: Pantoprazole 40 mg EC Tab PO SCH (07:00)
[2018-05-05 07:01] LABS: BASO # 0.02 K/mm3 (0.0-2.0); BASO % 0.2 % (0.0-3.0); EOS # 0.1 (0.0-0.7); EOS % 1.4 % (1.5-5.0); HEMOGLOBIN 13.8 g/dL (14.0-18.0); LYMPH # 3.3 (1.2-3.4); LYMPH % 37.3 % (22.0-35.0); MEAN CELL VOLUME 85.2 fl (80.0-105.0); MEAN CORPUSCULAR HGB CONC 32.9 g/dl (31.0-37.0); MEAN PLATELET VOLUME 9.5 fl (7.0-11.0); MONO # 0.7 (0.1-0.6); MONO % 7.6 % (1.0-6.0); RBC 4.92 10^6/uL (3.5-6.1); WHITE BLOOD COUNT 8.9 10^3/uL (4.5-11.0)
[2018-05-05 07:03] LABS: ALB/GLOB RATIO 1.3 (1.1-1.8); ALBUMIN 3.8 g/dL (3.0-4.8); ALT/SGPT 35 U/L (7-56); AST/SGOT 30 U/L (17-59); BLOOD UREA NITROGEN 19 mg/dL (7-21); CALCIUM 9.1 mg/dL (8.4-10.5); GFR NON-AFRICAN AMERICAN > 60
--- NOTE | 2018-05-05 08:56 | CP.PCM.PN ---
<Ludwin Delatorre - Last Filed: 05/05/18 13:05> Subjective - Date & Time of Evaluation Date of Evaluation: 05/05/18 Time of Evaluation: 08:53 - Subjective Subjective: Medicine Progress Note for Dr. Velasquez 52M seen and evaluated at bedside this morning. No acute events overnight. No complaints this morning. Patient stated he would like to go home. Will need to follow up with psychiatry regarding voluntary vs. involuntary psychiatric placement. Denies f/c, n/v/d, SOB, CP, headaches, dizziness, abdominal pain, or urinary symptoms. Objective - Vital Signs/Intake and Output Vital Signs (last 24 hours): Temp Pulse Resp BP Pulse Ox 98.9 F 74 107 H 140/77 91 L 05/04/18 23:36 05/04/18 18:00 05/04/18 09:30 05/04/18 10:37 05/04/18 09:30 - Medications Medications: Current Medications Aripiprazole (Abilify) 5 mg PO HS [facility] Last Admin: 05/04/18 21:47 Dose: 5 mg Bupropion HCl (Wellbutrin) 100 mg PO DAILY [facility] Fluoxetine HCl (Prozac) 20 mg PO DAILY [facility] Hydralazine HCl (Apresoline) 10 mg IVP Q6 PRN PRN Reason: Systolic Blood Pressure Lisinopril (Zestril) 10 mg PO DAILY [facility] Last Admin: 05/04/18 10:37 Dose: 10 mg Lorazepam (Ativan) 1 mg IVP Q6H PRN; Protocol PRN Reason: Agitation Pantoprazole Sodium (Protonix Ec Tab) 40 mg PO 0600 [facility] Last Admin: 05/05/18 07:00 Dose: 40 mg - Labs Labs: 05/05/18 06:30 05/05/18 06:30 PT 13.1 SECONDS (9.4-12.5) H 05/04/18 15:44 INR 1.18 05/04/18 15:44 APTT 38.8 Seconds (26.9-38.3) H 05/03/18 20:40 - Constitutional Appears: Well, Non-toxic, No Acute Distress - Head Exam Head Exam: ATRAUMATIC, NORMAL INSPECTION, NORMOCEPHALIC - Eye Exam Eye Exam: EOMI - ENT Exam ENT Exam: Mucous Membranes Moist - Respiratory Exam Respiratory Exam: NORMAL BREATHING PATTERN. absent: Respiratory Distress - Cardiovascular Exam Cardiovascular Exam: REGULAR RHYTHM. absent: Tachycardia - GI/Abdominal Exam GI & Abdominal Exam: Soft, Normal Bowel Sounds. absent: Distended, Guarding, Tenderness, Rebound - Neurological Exam Neurological Exam: Alert, Awake, Oriented x3 - Psychiatric Exam Psychiatric exam: Flat Affect - Skin Skin Exam: Dry, Intact, Normal Color, Warm Assessment and Plan - Assessment and Plan (Free Text) Assessment: 53M, PMH of panic disorder, depression, restless leg syndrome, herniated discs, and multi-substance abuse, admitted for Tylenol overdose. Plan: Tylenol Overdose - N-acetylcysteine drip completed - Patient tylenol levels <10 - AST/ALT wnl today - Daily labs, trend LFTs - F/u poison control - F/u any further GI recommendations New onset High Blood Pressure - Lisinopril 10mg PO QD - F/u ECHO - Repeat EKG: NSR, LBBB, Left axis deviation - Monitor vitals Suicidal Ideations - F/u psychiatry regarding voluntary vs involuntary placement - Advised nursing staff that patient cannot leave AMA - Continue medications per psychiatry's discretion - Ativan PRN - Continue 1:1 sitter PPX DVT: SCDs GI: Protonix HHD Patient plan discussed with Dr. Ron Delatorre PGY1 <Zakia Velasquez - Last Filed: 05/05/18 14:40> Objective - Vital Signs/Intake and Output Vital Signs (last 24 hours): Temp Pulse Resp BP Pulse Ox 98.9 F 88 20 120/59 L 97 05/04/18 23:36 05/05/18 11:10 05/05/18 10:59 05/05/18 11:00 05/05/18 11:10 - Medications Medications: Current Medications Aripiprazole (Abilify) 5 mg PO HS [facility] Last Admin: 05/04/18 21:47 Dose: 5 mg Bupropion HCl (Wellbutrin) 100 mg PO DAILY [facility] Last Admin: 05/05/18 10:27 Dose: 100 mg Fluoxetine HCl (Prozac) 20 mg PO DAILY [facility] Last Admin: 05/05/18 10:26 Dose: 20 mg Hydralazine HCl (Apresoline) 10 mg IVP Q6 PRN PRN Reason: Systolic Blood Pressure Lisinopril (Zestril) 10 mg PO DAILY [facility] Last Admin: 05/05/18 10:00 Dose: Not Given Lorazepam (Ativan) 1 mg IVP Q6H PRN; Protocol PRN Reason: Agitation Pantoprazole Sodium (Protonix Ec Tab) 40 mg PO 0600 [facility] Last Admin: 05/05/18 07:00 Dose: 40 mg - Labs Labs: 05/05/18 06:30 05/05/18 06:30 PT 13.1 SECONDS (9.4-12.5) H 05/04/18 15:44 INR 1.18 05/04/18 15:44 APTT 38.8 Seconds (26.9-38.3) H 05/03/18 20:40 Attending/Attestation - Attestation I have personally seen and examined this patient.: Yes I have fully participated in the care of the patient.: Yes I have reviewed all pertinent clinical information, including history, physical exam and plan: Yes Notes (Text): 05/05/18 14:35 53 year old male with past medical history of panic disorder, depression, restless leg syndronme and substance abuse who presented with tylenol overdose. He is s/p NAC drip. Tylenol level has come down. LFTs are normal. GI is following. UTox was also positive for opiates, amphetamine and cocaine. Patient was counselled on risks of continued substance abuse. Patient was started on lisinopril with improvement of blood pressure. Echocardiogram is pending. Patient is currently on 1:1 observation. Psychiatry is following; will follow up with recommendations. Zakia Velasquez MD Hospitalist.
--- NOTE | 2018-05-05 12:05 | CP.PCM.PN ---
<Nestor Hsieh - Last Filed: 05/05/18 13:32> Subjective - Date & Time of Evaluation Date of Evaluation: 05/05/18 Time of Evaluation: 08:00 - Subjective Subjective: Pt seen and examined this morning in the ICU. Pt reports feeling much better, although lethargic. Denies chest pain or SOB. Objective - Vital Signs/Intake and Output Vital Signs (last 24 hours): Temp Pulse Resp BP Pulse Ox 98.9 F 66 107 H 121/66 91 L 05/04/18 23:36 05/05/18 10:27 05/04/18 09:30 05/05/18 10:27 05/04/18 09:30 - Medications Medications: Current Medications Aripiprazole (Abilify) 5 mg PO [facility] Last Admin: 05/04/18 21:47 Dose: 5 mg Bupropion HCl (Wellbutrin) 100 mg PO DAILY [facility] Last Admin: 05/05/18 10:27 Dose: 100 mg Fluoxetine HCl (Prozac) 20 mg PO DAILY [facility] Last Admin: 05/05/18 10:26 Dose: 20 mg Hydralazine HCl (Apresoline) 10 mg IVP Q6 PRN PRN Reason: Systolic Blood Pressure Lisinopril (Zestril) 10 mg PO DAILY [facility] Last Admin: 05/05/18 10:27 Dose: 10 mg Lorazepam (Ativan) 1 mg IVP Q6H PRN; Protocol PRN Reason: Agitation Pantoprazole Sodium (Protonix Ec Tab) 40 mg PO 0600 [facility] Last Admin: 05/05/18 07:00 Dose: 40 mg - Labs Labs: 05/05/18 06:30 05/05/18 06:30 PT 13.1 SECONDS (9.4-12.5) H 05/04/18 15:44 INR 1.18 05/04/18 15:44 APTT 38.8 Seconds (26.9-38.3) H 05/03/18 20:40 - Constitutional Appears: No Acute Distress - Head Exam Head Exam: ATRAUMATIC, NORMOCEPHALIC - Eye Exam Eye Exam: EOMI - ENT Exam ENT Exam: Mucous Membranes Moist - Neck Exam Neck Exam: Full ROM - Respiratory Exam Respiratory Exam: Clear to Ausculation Bilateral, NORMAL BREATHING PATTERN. absent: Accessory Muscle Use, Respiratory Distress - Cardiovascular Exam Cardiovascular Exam: RRR, +S1, +S2. absent: Diastolic murmur, Murmur - GI/Abdominal Exam GI & Abdominal Exam: Soft, Normal Bowel Sounds - Extremities Exam Extremities Exam: Full ROM. absent: Calf Tenderness - Neurological Exam Neurological Exam: Alert, Awake, Oriented x3 - Psychiatric Exam Psychiatric exam: Normal Affect, Normal Mood - Skin Skin Exam: Dry, Intact, Warm Assessment and Plan - Assessment and Plan (Free Text) Assessment: Pt is a 52 yo male with a PMH of Bipolar disorder and poly substance abuse who presented to the ED complaining of a panic attack after ingesting 10 Tylenol #3 tablets. Plan: Neuro - AOx3 Cadio - Maintain MAP >65 - hydralazine Pulm: - Maintain O2 sat >92 GI - Tylenol level was 99 on admission but has resolved to <10 at this time. - LFT's are WNL - GI consulted, Dr Loomis Heme/Onc - H/H stable, continue to monitor Nephro - renal function is stable - Cr 0.7 - BUN 19 Endo - Maintain euglycemia ID - no signs of infection at this time Psyc - continue 1:1 sitter at this time - continue psyc meds as per psyc - psyc following,m Dr Chaney Dispo: pt to be transferred to med surg Pt seen, examined, assessment and plan discussed with Dr Zeeshan Hsieh PGY1, Internal Medicine Resident <Jos Byers - Last Filed: 05/05/18 16:29> Objective - Vital Signs/Intake and Output Vital Signs (last 24 hours): Temp Pulse Resp BP Pulse Ox 98.9 F 74 40 H 116/51 L 94 L 05/04/18 23:36 05/05/18 14:49 05/05/18 14:49 05/05/18 14:30 05/05/18 14:40 Intake and Output: 05/05/18 05/05/18 06:59 18:59 Output Total 400 Balance -400 - Medications Medications: Current Medications Aripiprazole (Abilify) 5 mg PO HS [facility] Last Admin: 05/04/18 21:47 Dose: 5 mg Bupropion HCl (Wellbutrin) 100 mg PO DAILY [facility] Last Admin: 05/05/18 10:27 Dose: 100 mg Fluoxetine HCl (Prozac) 20 mg PO DAILY [facility] Last Admin: 05/05/18 10:26 Dose: 20 mg Hydralazine HCl (Apresoline) 10 mg IVP Q6 PRN PRN Reason: Systolic Blood Pressure Lisinopril (Zestril) 10 mg PO DAILY [facility] Last Admin: 05/05/18 10:00 Dose: Not Given Lorazepam (Ativan) 1 mg IVP Q6H PRN; Protocol PRN Reason: Agitation Pantoprazole Sodium (Protonix Ec Tab) 40 mg PO 0600 [facility] Last Admin: 05/05/18 07:00 Dose: 40 mg - Labs Labs: 05/05/18 06:30 05/05/18 06:30 PT 13.1 SECONDS (9.4-12.5) H 05/04/18 15:44 INR 1.18 05/04/18 15:44 APTT 38.8 Seconds (26.9-38.3) H 05/03/18 20:40 Attending/Attestation - Attestation I have personally seen and examined this patient.: Yes I have fully participated in the care of the patient.: Yes I have reviewed all pertinent clinical information, including history, physical exam and plan: Yes Notes (Text): 05/05/18 16:28 52 yo with multidrug overdose, including APAP, who received 3 doses of NAC. doing well. alert awake and oriented x 3. QTc 450, spoke with poison control-->nothign to add. spoked with psych-->cont 1:1. [facility] min
--- NOTE | 2018-05-05 12:42 | CARD ---
APPROVED REPORT Date of service: 05/05/2018 EKG Measurement Heart [id number] 178P14 [id number] <Conclusion> Normal sinus rhythm Left axis deviation Left bundle branch block Abnormal ECG
--- NOTE | 2018-05-05 14:55 | PN ---
DATE: 05/05/2018 SUBJECTIVE: In short, the patient is a 52-year-old male with reported history of polysubstance abuse and dependence, history of mental illness, most likely mood spectrum disorder. The patient came to the emergency room complaining of panic attacks. The patient reported that he took a handful of unknown pills. He thought that it was pain killers. The patient was admitted under the name of Damien Harris because he was not able to give his name. The patient was admitted to ICU. Psych consult was called for evaluation of possible suicidal ideations. The patient was seen by Dr. Chaney yesterday. As per Dr. Chaney that patient said that he wanted to end up his life. Dr. Chaney offered the patient voluntary admission, but the patient was not cleared from the medical standpoint back then. The patient was seen today at the morning time. The patient is on one to one. The patient presented to be guarded, not willing to provide history. The patient reported that he sees psychiatrist at [facility], Dr. Otero, last appointment was two weeks ago. The patient reported that he is compliant with the medications, but Prozac and Wellbutrin he lost. The patient also reported that he was on Klonopin and Abilify. The patient denied hearing voices, denied seeing things. Denied paranoid ideation. The patient denied thoughts of harming himself during the interview, but based on Dr. Chaney's note, the patient confirmed that he wanted to end up his life, but today the patient denied suicidal attempt. PHYSICAL EXAMINATION: VITAL SIGNS: Reviewed. Temperature 98.9, pulse 66, blood pressure 121/66. MEDICATIONS: Reviewed. The patient is on Abilify 5 mg at the nighttime, Wellbutrin 100 mg daily, Prozac 20 mg daily, Zestril, Ativan 1 mg every 6 hours as needed and Protonix. LABORATORY DATA: Labs reviewed. Urine was positive for red blood cells; bilirubin, moderate. Toxicology was positive for acetaminophen 99, which most likely is related to overdose. The patient was positive for opioids, amphetamines and cannabis. The patient reported that he was using crystal meth and the last time was two weeks ago. MENTAL STATUS EXAM: The patient presented to be alert, somewhat guarded, intermittent eye contact. Mood described as fine. Affect was constricted. Thought process seems to be coherent. Thought content, the patient denied visual, auditory, or tactile hallucinations. Denied paranoid ideations. The patient does not present to be psychotic, but definitely cannot exclude that. The patient most likely tried to harm himself by overdosing on medications. Suicidal ideation cannot be excluded at the present moment. Insight and judgment seems to be limited. Impulses are fair as of now. IMPRESSION: Most likely the patient has mood spectrum disorder. The patient has history of polysubstance abuse and dependence. PLAN: Medications resumed by medical team. Dr. Chaney's notes reviewed. The patient was offered voluntary admission. The patient declined that offer. This public relations writer will recommend a [facility] screening process. Meanwhile, continue one-to-one observation. Should you have any questions give me a call back. Case was discussed with the fire tower keeper, Dr. Byers and medical residents. Thank you so much for letting me participate in care of your patient Maeve Castorena MD
--- NOTE | 2018-05-05 15:25 | CP.PCM.DIS ---
Provider - Provider Date of Admission: 05/03/18 20:00 Attending physician: Zakia Velasquez MD Primary care physician: Harry Lee MD Consults: 05/03/18 21:17 Gastroenterology Consult Routine Comment: Consulting Provider: Damien Loomis Consulting Physician: Damien Loomis Reason for Consult: tylenol toxicity Psychiatry Consult Routine Comment: Consulting Provider: Pepper Chaney Consulting Physician: Pepper Chaney Reason for Consult: suicidal ideations Time Spent in preparation of Discharge (in minutes): 60 Hospital Course - Lab Results Lab Results: Micro Results 05/03/18 23:35 Nose MRSA Culture (Admit) - Final MRSA NOT DETECTED Most Recent Lab Values WBC 8.9 10^3/uL (4.5-11.0) 05/05/18 06:30 RBC 4.92 10^6/uL (3.5-6.1) 05/05/18 06:30 Hgb 13.8 g/dL (14.0-18.0) L 05/05/18 06:30 Hct 41.9 % (42.0-52.0) L 05/05/18 06:30 MCV 85.2 fl (80.0-105.0) 05/05/18 06:30 MCH 28.0 pg (25.0-35.0) 05/05/18 06:30 MCHC 32.9 g/dl (31.0-37.0) 05/05/18 06:30 RDW 14.0 % (11.5-14.5) 05/05/18 06:30 Plt Count 420 10^3/uL (120.0-450.0) 05/05/18 06:30 MPV 9.5 fl (7.0-11.0) 05/05/18 06:30 Neut % (Auto) 53.5 % (50.0-68.0) 05/05/18 06:30 Lymph % (Auto) 37.3 % (22.0-35.0) H 05/05/18 06:30 [place] % (Auto) 7.6 % (1.0-6.0) H 05/05/18 06:30 Eos % (Auto) 1.4 % (1.5-5.0) L 05/05/18 06:30 Baso % (Auto) 0.2 % (0.0-3.0) 05/05/18 06:30 Lymph # (Auto) 3.3 (1.2-3.4) 05/05/18 06:30 [place] # (Auto) 0.7 (0.1-0.6) H 05/05/18 06:30 Eos # (Auto) 0.1 (0.0-0.7) 05/05/18 06:30 Baso # (Auto) 0.02 K/mm3 (0.0-2.0) 05/05/18 06:30 Absolute Neuts (auto) 4.75 (1.4-6.5) 05/05/18 06:30 PT 13.1 SECONDS (9.4-12.5) H 05/04/18 15:44 INR 1.18 05/04/18 15:44 APTT 38.8 Seconds (26.9-38.3) H 05/03/18 20:40 Sodium 139 mmol/L (132-148) 05/05/18 06:30 Potassium 4.1 mmol/L (3.6-5.0) 05/05/18 06:30 Chloride 104 mmol/L (98-107) 05/05/18 06:30 Carbon Dioxide 29 mmol/L (21-33) 05/05/18 06:30 Anion Gap 10 (10-20) 05/05/18 06:30 BUN 19 mg/dL (7-21) 05/05/18 06:30 Creatinine 0.7 mg/dl (0.8-1.5) L 05/05/18 06:30 Est GFR ( Amer) > 60 05/05/18 06:30 Est GFR (Non-Af Amer) > 60 05/05/18 06:30 POC Glucose (mg/dL) 138 mg/dL (65-110) H 05/03/18 18:05 Random Glucose 114 mg/dL (70-110) H 05/05/18 06:30 Calcium 9.1 mg/dL (8.4-10.5) 05/05/18 06:30 Phosphorus 3.8 mg/dL (2.5-4.5) 05/05/18 06:30 Magnesium 2.3 mg/dL (1.7-2.2) H 05/05/18 06:30 Total Bilirubin 0.3 mg/dL (0.2-1.3) 05/05/18 06:30 AST 30 U/L (17-59) 05/05/18 06:30 ALT 35 U/L (7-56) 05/05/18 06:30 Alkaline Phosphatase 104 U/L (38-126) 05/05/18 06:30 Troponin I < 0.01 ng/mL 05/04/18 12:20 Total Protein 6.8 g/dL (5.8-8.3) 05/05/18 06:30 Albumin 3.8 g/dL (3.0-4.8) 05/05/18 06:30 Globulin 3.0 gm/dL 05/05/18 06:30 Albumin/Globulin Ratio 1.3 (1.1-1.8) 05/05/18 06:30 Urine Color Yellow (YELLOW) 05/03/18 18:55 Urine Appearance Clear (CLEAR) 05/03/18 18:55 Urine pH 5.5 (4.7-8.0) 05/03/18 18:55 Ur Specific [place] >= 1.030 (1.005-1.035) 05/03/18 18:55 Urine Protein 30 mg/dL (<30 mg/dL) H 05/03/18 18:55 Urine Glucose (UA) Negative mg/dL (NEGATIVE) 05/03/18 18:55 Urine Ketones 15 mg/dL (NEGATIVE) H 05/03/18 18:55 Urine Blood Trace-intact (NEGATIVE) H 05/03/18 18:55 Urine Nitrate Negative (NEGATIVE) 05/03/18 18:55 Urine Bilirubin Moderate (NEGATIVE) H 05/03/18 18:55 Urine Urobilinogen 1.0 E.U./dL (<1 E.U./dL) H 05/03/18 18:55 Ur Leukocyte Esterase Negative John/uL (NEGATIVE) 05/03/18 18:55 Urine RBC 2 - 5 /hpf (0-2) H 05/03/18 18:55 Urine WBC 0 - 2 /hpf (0-6) 05/03/18 18:55 Ur Epithelial Cells None /hpf (0-5) 05/03/18 18:55 Urine Bacteria Few /hpf (NONE) 05/03/18 18:55 Salicylates < 1 mg/dL (2.0-20.0) L 05/03/18 17:34 Urine Opiates Screen Positive (NEGATIVE) H 05/03/18 18:55 Urine Methadone Screen Negative (NEGATIVE) 05/03/18 18:55 Acetaminophen < 10.0 ug/ml (10.0-20.0) L 05/04/18 15:30 Ur Barbiturates Screen Negative (NEGATIVE) 05/03/18 18:55 Ur Phencyclidine Scrn Negative (NEGATIVE) 05/03/18 18:55 Ur Amphetamines Screen Positive (NEGATIVE) H 05/03/18 18:55 U Benzodiazepines Scrn Negative (NEGATIVE) 05/03/18 18:55 U Oth Cocaine Metabols Negative (NEGATIVE) 05/03/18 18:55 U Cannabinoids Screen Positive (NEGATIVE) H 05/03/18 18:55 Alcohol, Quantitative < 10 mg/dL (0-10) 05/03/18 17:34 HIV 1&2 Antibody Screen Negative (NEGATIVE) 05/04/18 05:40 - Hospital Course Hospital Course: Patient is a 53 year old male, with PMH of depression, panic disorder, and herniated discs, who presented to the hospital due to a panic attack. Patient reported that he was at his home ([facility]) when he started having a panic attack, he took a "bunch of painkillers to help him relax." He stated that he received those pills from his neurologist. His neighbor then called the ambulance for him. He reported feeling mildly confused, but denied dizziness, syncope, chest pain, nausea, vomiting, fevers, chills, headache, neck pain, sob, abdominal pain, urinary symptoms, leg swelling. Patient reported that he had been feeling down and had thoughts about hurting himself. Denies homicidal ideations or plan. Upon admission, vitals were stable except for high BP 180s/110s. Patient started on Lisinopril 10mg QD after which BP his stabilized and within normal limits. On Lab work-up Tylenol levels were elevated at 99, UDS was positive for opiates, amphetamines, and cannabinoids. Poison control was contacted and instructions were given for management of Tylenol overdose. EKG showed sinus tachycardia 106 with widened QRS (142 ms and prolonged qtc 496 ms). Patient was started on N- acetylcysteine drip and given a total 2 doses of sodium bicarb. Repeat EKG showed qrs 138 ms and qtc 515 ms. Magnesium level was 1.9 which was repleted. Chest X-ray was negative and Echocardiogram complete, reading is still pending. Patient was placed on 1:1 observation due to Suicidal ideations and Psychiatry was consulted. Psychiatry recommended admission, but patient declined. Patient will be screened by [facility] for involuntary admission to [facility].Patient was medically stable and ready for discharge today. He reported no longer having any abdominal pain at this time and he is tolerating his diet. Patient verbalized understanding of all information provided. In addition, he was told to return to the emergency department if she had any recurring or new concerning symptoms. Above is a brief summary, for a detailed hospital encounter please refer to medical records. - Date & Time of H&P Date of H&P: 05/03/18 Time of H&P: 21:39 Discharge Exam - Head Exam Head Exam: ATRAUMATIC, NORMOCEPHALIC - Eye Exam Eye Exam: EOMI - ENT Exam ENT Exam: Mucous Membranes Moist - Respiratory Exam Respiratory Exam: NORMAL BREATHING PATTERN. absent: Respiratory Distress - Cardiovascular Exam Cardiovascular Exam: REGULAR RHYTHM. absent: Tachycardia - GI/Abdominal Exam GI & Abdominal Exam: Normal Bowel Sounds, Soft. absent: Tenderness - Extremities Exam Extremities exam: pedal pulses present - Back Exam Back exam: absent: CVA tenderness (L), CVA tenderness (R) - Neurological Exam Neurological exam: Alert, Oriented x3 - Psychiatric Exam Psychiatric exam: Flat Affect - Skin Skin Exam: Dry, Intact, Normal Color, Warm Discharge Plan - Follow Up Plan Condition: FAIR Disposition: DISCHARGE TO PSYCH HOSPITAL Patient education suggested?: Yes Instructions: Drug Abuse and Drug Addiction (DC), Prescription Drug Abuse (DC) Referrals: Harry Lee MD [Primary Care Provider] -
--- NOTE | 2018-05-05 17:55 | CARD ---
APPROVED REPORT Date of service: 05/05/2018 EXAM: Two-dimensional and M-mode echocardiogram with Doppler and color Doppler. INDICATION LVH 2D DIMENSIONS RVDd3.7 (2.9-3.5cm)Left Atrium (2D)4.5 (1.6-4.0cm) IVSd1.3 (0.7-1.1cm)LVDd4.8 (3.9-5.9cm) PWd1.4 (0.7-1.1cm)LVDs3.6 (2.5-4.0cm) FS (%) 25.5 %LVEF (%)50.4 (>50%) M-Mode DIMENSIONS Aortic Root3.50 (2.2-3.7cm)Aortic Cusp Exc.2.10 (1.5-2.0cm) Aortic Valve AoV Peak Bbrqhdwn541.0cm/Deepak Peak GR.7mmHg Mitral Valve MV E Nblyvjum77.7cm/sMV A Rgobvhir23.7cm/sE/A ratio1.6 TDI Lateral E' Peak V10.90cm/sMedial E' Peak V8.29cm/sE/Lateral E'9.0 E/Medial E'11.8 Pulmonary Valve PV Peak Dqwnegvo16.9cm/sPV Peak Grad.3mmHg Tricuspid Valve TR Peak Orjpqicq795gd/sRAP [id number] Peak Gr.18mmHg [id number] LEFT VENTRICLE The left ventricle is normal size. There is mild to moderate concentric left ventricular hypertrophy. The left ventricular function is normal. The left ventricular ejection fraction is within the normal range. There is normal LV segmental wall motion. RIGHT VENTRICLE The right ventricle is normal size. The right ventricular systolic function is normal. ATRIA The left atrium is mildly dilated. The right atrium size is normal. The interatrial septum is intact with no evidence for an atrial septal defect. AORTIC VALVE The aortic valve is normal in structure. No aortic regurgitation is present. There is no aortic valvular stenosis. MITRAL VALVE The mitral valve is normal in structure. Mitral regurgitation is mild. TRICUSPID VALVE The tricuspid valve is normal in structure. There is mild tricuspid regurgitation. PULMONIC VALVE The pulmonary valve is normal in structure. GREAT VESSELS The aortic root is normal in size. The IVC is normal in size and collapses >50% with inspiration. PERICARDIAL EFFUSION There is no pleural effusion. There is no pericardial effusion. <Conclusion> Dilated LA. Normal LV size and systolic function. Mild to moderate concentric LVH. Mild MR and TR.
[2018-05-05] MEDS ORDERED: Simethicone 80 mg Chewtab PO ONE (23:23)
[2018-05-06 07:22] LABS: BASO # 0.05 K/mm3 (0.0-2.0); BASO % 0.7 % (0.0-3.0); EOS # 0.3 (0.0-0.7); EOS % 3.4 % (1.5-5.0); HEMOGLOBIN 13.7 g/dL (14.0-18.0); LYMPH # 3.5 (1.2-3.4); LYMPH % 46.7 % (22.0-35.0); MEAN CELL VOLUME 85.8 fl (80.0-105.0); MEAN CORPUSCULAR HEMOGLOBIN 28.1 pg (25.0-35.0); MEAN CORPUSCULAR HGB CONC 32.8 g/dl (31.0-37.0); MEAN PLATELET VOLUME 9.7 fl (7.0-11.0); MONO # 0.5 (0.1-0.6); RBC 4.87 10^6/uL (3.5-6.1); RED CELL DISTRIBUTION WIDTH 13.9 % (11.5-14.5); WHITE BLOOD COUNT 7.5 10^3/uL (4.5-11.0)
[2018-05-06 07:51] LABS: BLOOD UREA NITROGEN 19 mg/dL (7-21); GFR NON-AFRICAN AMERICAN > 60
[2018-05-06 07:52] LABS: ALB/GLOB RATIO 1.2 (1.1-1.8); ALBUMIN 3.7 g/dL (3.0-4.8); ALT/SGPT 38 U/L (7-56); AST/SGOT 35 U/L (17-59); CALCIUM 8.7 mg/dL (8.4-10.5)
--- NOTE | 2018-05-06 15:55 | CP.PCM.PN ---
<Tenzin Fishman - Last Filed: 05/06/18 16:01> Subjective - Date & Time of Evaluation Date of Evaluation: 05/06/18 Time of Evaluation: 10:30 - Subjective Subjective: PGY-2 medicine progress note for Dr Velasquez No acute events noted overnight. Patient eager to go home but understands he needs further evaluation from [facility] involuntary psych unit. Denied si/hi at this time. Denied being in pain, discomfort, sob, abd pain, f/n/v/d. Objective - Vital Signs/Intake and Output Vital Signs (last 24 hours): Temp Pulse Resp BP Pulse Ox 98.1 F 64 20 107/65 96 05/06/18 06:00 05/06/18 06:00 05/06/18 06:00 05/06/18 10:36 05/06/18 06:00 Intake and Output: 05/06/18 05/06/18 06:59 18:59 Intake Total 260 Balance 260 - Medications Medications: Current Medications Aripiprazole (Abilify) 5 mg PO HS [facility] Last Admin: 05/05/18 21:08 Dose: 5 mg Aspirin (Ecotrin) 81 mg PO DAILY [facility] Last Admin: 05/06/18 10:33 Dose: 81 mg Bupropion HCl (Wellbutrin) 100 mg PO DAILY [facility] Last Admin: 05/06/18 10:33 Dose: 100 mg Fluoxetine HCl (Prozac) 20 mg PO DAILY [facility] Last Admin: 05/06/18 10:33 Dose: 20 mg Hydralazine HCl (Apresoline) 10 mg IVP Q6 PRN PRN Reason: Systolic Blood Pressure Lisinopril (Zestril) 10 mg PO DAILY [facility] Last Admin: 05/06/18 10:36 Dose: Not Given Lorazepam (Ativan) 1 mg IVP Q6H PRN; Protocol PRN Reason: Agitation Last Admin: 05/05/18 19:10 Dose: 1 mg Pantoprazole Sodium (Protonix Ec Tab) 40 mg PO 0600 [facility] Last Admin: 05/05/18 07:00 Dose: 40 mg - Labs Labs: 05/06/18 07:00 05/06/18 07:00 PT 13.1 SECONDS (9.4-12.5) H 05/04/18 15:44 INR 1.18 05/04/18 15:44 APTT 38.8 Seconds (26.9-38.3) H 05/03/18 20:40 - Additional Findings Additional findings: - Constitutional Appears: Well, Non-toxic, No Acute Distress - Head Exam Head Exam: ATRAUMATIC, NORMAL INSPECTION, NORMOCEPHALIC - Eye Exam Eye Exam: EOMI - ENT Exam ENT Exam: Mucous Membranes Moist - Respiratory Exam Respiratory Exam: NORMAL BREATHING PATTERN. absent: Respiratory Distress - Cardiovascular Exam Cardiovascular Exam: REGULAR RHYTHM. absent: Tachycardia - GI/Abdominal Exam GI & Abdominal Exam: Soft, Normal Bowel Sounds. absent: Distended, Guarding, Tenderness, Rebound - Neurological Exam Neurological Exam: Alert, Awake, Oriented x3 - Psychiatric Exam Psychiatric exam: Flat Affect - Skin Skin Exam: Dry, Intact, Normal Color, Warm Assessment and Plan - Assessment and Plan (Free Text) Plan: 53M, PMH of panic disorder, depression, restless leg syndrome, herniated discs, and multi-substance abuse, admitted for Tylenol overdose. Plan: Tylenol Overdose - N-acetylcysteine drip completed - Patient tylenol levels <10 - AST/ALT wnl today - Daily labs, trend LFTs - poison control stated there are no further recommendations - no further GI recommendations New onset High Blood Pressure - Lisinopril 10mg PO QD - ECHO showed dilated LA, mild concentric LVH, mild MR and mild TR - Repeat EKG: NSR, LBBB, Left axis deviation - Monitor vitals Suicidal Ideations - F/u psychiatry regarding voluntary vs involuntary placement - we're still waiting for screener from [facility] to come and evaluate patient - Advised nursing staff that patient cannot leave AMA - Continue medications per psychiatry's discretion - Ativan PRN - Continue 1:1 sitter PPX DVT: SCDs GI: Protonix HHD Patient plan discussed with Dr. Velasquez <Zakia Velasquez - Last Filed: 05/06/18 16:27> Objective - Vital Signs/Intake and Output Vital Signs (last 24 hours): Temp Pulse Resp BP Pulse Ox 97.8 F 64 16 111/63 96 05/06/18 15:57 05/06/18 15:57 05/06/18 15:57 05/06/18 15:57 05/06/18 15:57 Intake and Output: 05/06/18 05/06/18 06:59 18:59 Intake Total 260 Balance 260 - Medications Medications: Current Medications Aripiprazole (Abilify) 5 mg PO HS [facility] Last Admin: 05/05/18 21:08 Dose: 5 mg Aspirin (Ecotrin) 81 mg PO DAILY [facility] Last Admin: 05/06/18 10:33 Dose: 81 mg Bupropion HCl (Wellbutrin) 100 mg PO DAILY [facility] Last Admin: 05/06/18 10:33 Dose: 100 mg Fluoxetine HCl (Prozac) 20 mg PO DAILY [facility] Last Admin: 05/06/18 10:33 Dose: 20 mg Hydralazine HCl (Apresoline) 10 mg IVP Q6 PRN PRN Reason: Systolic Blood Pressure Lisinopril (Zestril) 10 mg PO DAILY [facility] Last Admin: 05/06/18 10:36 Dose: Not Given Lorazepam (Ativan) 1 mg IVP Q6H PRN; Protocol PRN Reason: Agitation Last Admin: 05/05/18 19:10 Dose: 1 mg Pantoprazole Sodium (Protonix Ec Tab) 40 mg PO 0600 [facility] Last Admin: 05/05/18 07:00 Dose: 40 mg - Labs Labs: 05/06/18 07:00 05/06/18 07:00 PT 13.1 SECONDS (9.4-12.5) H 05/04/18 15:44 INR 1.18 05/04/18 15:44 APTT 38.8 Seconds (26.9-38.3) H 05/03/18 20:40 Attending/Attestation - Attestation I have personally seen and examined this patient.: Yes I have fully participated in the care of the patient.: Yes I have reviewed all pertinent clinical information, including history, physical exam and plan: Yes Notes (Text): 05/06/18 16:25 53 year old male with past medical history of panic disorder, depression, restless leg syndronme and substance abuse who presented with tylenol overdose. He is s/p NAC drip. Tylenol level has come down. LFTs are normal. GI has been following. UTox was also positive for opiates, amphetamine and cocaine. Patient was counselled on risks of continued substance abuse. Patient was started on lisinopril for hypertension with improvement of blood pressure. EKG showed LBBB (old) and prolonged QTc which has come down. Echocardiogram was reviewed. Patient is currently on 1:1 observation. Psychiatry recommended inpatient psychiatric admission which patient refused. Awaiting [facility] screeners. Zakia Velasquez MD Hospitalist.
--- NOTE | 2018-05-06 19:40 | PN ---
DATE: 05/06/2018 FOLLOWUP NOTE SUBJECTIVE: This patient was admitted status post overdose. As per Dr. Chaney's note, the patient made it clear that he tried to kill himself. The patient was in ICU. The patient was downgraded to the medical site. This group underwriter offered the patient admission yesterday, but the patient declined that offer. Based on report, the patient is withdrawn/depressed/disengaged. The patient is still in one to one observation. The patient was followed up today. The patient presented with psychomotor retardation, disengaged, not willing to participate in interview. The patient said that he is not interested to be signing himself into the hospital for psychiatric care. The patient reported that he wants to be discharged back home. The patient denied any thoughts of harming himself or others, but based on the history and act which led the patient to ICU admission, this group underwriter is very doubtful about sincereness of this patient. PHYSICAL EXAMINATION: VITAL SIGNS: Stable. Temperature 98.1, blood pressure is 107/65, pulse 64, respiration 26 and saturation is 96. LABORATORY DATA: Reviewed. Toxicology, acetaminophen level was 99, which proved that the patient tried to harm himself. This group underwriter evaluated the patient's mental status. The patient presented to be sleepy, easily arousable, intermittent eye contact. Mood described as fine. Affect was constricted, angry and irritable, seems to be mood incongruent. Thought process concrete. Thought content, the patient denied visual, auditory, tactile hallucinations. Denied paranoid ideation. The patient seems to be guarded and disengaged. Insight and judgment limited. Impulses are well controlled. MEDICATIONS: Reviewed. The patient is on Abilify 5 mg at nighttime, Wellbutrin 100 mg daily, Prozac 20 mg daily, Ativan as needed and Protonix. ASSESSMENT: Most likely the patient has depression or anxiety, polysubstance abuse and dependence. Urine drug screen was positive for opioids, acetaminophen, amphetamines, also cannabis: PLAN: The patient refused to sign consent for treatment. At the present moment, the patient does not want to sign himself into the psychiatric inpatient unit, screening process was initiated. Discussed with the medical team. Thank you very much for letting me participate in care of your patient. Maeve Castorena MD [facility] # [id number]
[2018-05-06] MEDS: Pantoprazole 40 mg EC Tab PO SCH (21:32)
[2018-05-07] MEDS: Pantoprazole 40 mg EC Tab PO SCH (05:45)
[2018-05-07 07:37] LABS: BASO # 0.04 K/mm3 (0.0-2.0); BASO % 0.5 % (0.0-3.0); EOS # 0.4 (0.0-0.7); EOS % 4.5 % (1.5-5.0); HEMOGLOBIN 14.1 g/dL (14.0-18.0); LYMPH # 3.7 (1.2-3.4); LYMPH % 47.4 % (22.0-35.0); MEAN CELL VOLUME 85.6 fl (80.0-105.0); MEAN CORPUSCULAR HEMOGLOBIN 28.3 pg (25.0-35.0); MEAN PLATELET VOLUME 9.8 fl (7.0-11.0); MONO # 0.5 (0.1-0.6); MONO % 6.5 % (1.0-6.0); RBC 4.99 10^6/uL (3.5-6.1); RED CELL DISTRIBUTION WIDTH 13.7 % (11.5-14.5); WHITE BLOOD COUNT 7.7 10^3/uL (4.5-11.0)
[2018-05-07 08:16] LABS: ALB/GLOB RATIO 1.4 (1.1-1.8); ALT/SGPT 52 U/L (7-56); AST/SGOT 51 U/L (17-59); BLOOD UREA NITROGEN 18 mg/dL (7-21); CALCIUM 9.1 mg/dL (8.4-10.5); GFR NON-AFRICAN AMERICAN > 60
[2018-05-07 09:06] VITALS: O2SAT 96
--- NOTE | 2018-05-07 09:15 | CP.PCM.DIS ---
<Ludwin Delatorre - Last Filed: 05/07/18 13:52> Provider - Provider Date of Admission: 05/03/18 20:00 Attending physician: Zakia Velasquez MD Primary care physician: Harry Lee MD Consults: 05/03/18 21:17 Gastroenterology Consult Routine Comment: Consulting Provider: Damien Loomis Consulting Physician: Damien Loomis Reason for Consult: tylenol toxicity Psychiatry Consult Routine Comment: Consulting Provider: Pepper Chaney Consulting Physician: Pepper Chaney Reason for Consult: suicidal ideations Time Spent in preparation of Discharge (in minutes): 60 Hospital Course - Lab Results Lab Results: Micro Results 05/03/18 23:35 Nose MRSA Culture (Admit) - Final MRSA NOT DETECTED Most Recent Lab Values WBC 7.7 10^3/uL (4.5-11.0) 05/07/18 07:10 RBC 4.99 10^6/uL (3.5-6.1) 05/07/18 07:10 Hgb 14.1 g/dL (14.0-18.0) 05/07/18 07:10 Hct 42.7 % (42.0-52.0) 05/07/18 07:10 MCV 85.6 fl (80.0-105.0) 05/07/18 07:10 MCH 28.3 pg (25.0-35.0) 05/07/18 07:10 MCHC 33.0 g/dl (31.0-37.0) 05/07/18 07:10 RDW 13.7 % (11.5-14.5) 05/07/18 07:10 Plt Count 400 10^3/uL (120.0-450.0) 05/07/18 07:10 MPV 9.8 fl (7.0-11.0) 05/07/18 07:10 Neut % (Auto) 41.1 % (50.0-68.0) L 05/07/18 07:10 Lymph % (Auto) 47.4 % (22.0-35.0) H 05/07/18 07:10 [place] % (Auto) 6.5 % (1.0-6.0) H 05/07/18 07:10 Eos % (Auto) 4.5 % (1.5-5.0) 05/07/18 07:10 Baso % (Auto) 0.5 % (0.0-3.0) 05/07/18 07:10 Lymph # (Auto) 3.7 (1.2-3.4) H 05/07/18 07:10 [place] # (Auto) 0.5 (0.1-0.6) 05/07/18 07:10 Eos # (Auto) 0.4 (0.0-0.7) 05/07/18 07:10 Baso # (Auto) 0.04 K/mm3 (0.0-2.0) 05/07/18 07:10 Absolute Neuts (auto) 3.18 (1.4-6.5) 05/07/18 07:10 PT 13.1 SECONDS (9.4-12.5) H 05/04/18 15:44 INR 1.18 05/04/18 15:44 APTT 38.8 Seconds (26.9-38.3) H 05/03/18 20:40 Sodium 139 mmol/L (132-148) 05/07/18 07:10 Potassium 4.2 mmol/L (3.6-5.0) 05/07/18 07:10 Chloride 102 mmol/L (98-107) 05/07/18 07:10 Carbon Dioxide 30 mmol/L (21-33) 05/07/18 07:10 Anion Gap 11 (10-20) 05/07/18 07:10 BUN 18 mg/dL (7-21) 05/07/18 07:10 Creatinine 0.7 mg/dl (0.8-1.5) L 05/07/18 07:10 Est GFR ( Amer) > 60 05/07/18 07:10 Est GFR (Non-Af Amer) > 60 05/07/18 07:10 POC Glucose (mg/dL) 138 mg/dL (65-110) H 05/03/18 18:05 Random Glucose 91 mg/dL (70-110) 05/07/18 07:10 Calcium 9.1 mg/dL (8.4-10.5) 05/07/18 07:10 Phosphorus 4.1 mg/dL (2.5-4.5) 05/07/18 07:10 Magnesium 2.3 mg/dL (1.7-2.2) H 05/07/18 07:10 Total Bilirubin 0.4 mg/dL (0.2-1.3) 05/07/18 07:10 AST 51 U/L (17-59) 05/07/18 07:10 ALT 52 U/L (7-56) 05/07/18 07:10 Alkaline Phosphatase 116 U/L (38-126) 05/07/18 07:10 Troponin I < 0.01 ng/mL 05/04/18 12:20 Total Protein 6.9 g/dL (5.8-8.3) 05/07/18 07:10 Albumin 4.0 g/dL (3.0-4.8) 05/07/18 07:10 Globulin 2.9 gm/dL 05/07/18 07:10 Albumin/Globulin Ratio 1.4 (1.1-1.8) 05/07/18 07:10 Urine Color Yellow (YELLOW) 05/03/18 18:55 Urine Appearance Clear (CLEAR) 05/03/18 18:55 Urine pH 5.5 (4.7-8.0) 05/03/18 18:55 Ur Specific Wells >= 1.030 (1.005-1.035) 05/03/18 18:55 Urine Protein 30 mg/dL (<30 mg/dL) H 05/03/18 18:55 Urine Glucose (UA) Negative mg/dL (NEGATIVE) 05/03/18 18:55 Urine Ketones 15 mg/dL (NEGATIVE) H 05/03/18 18:55 Urine Blood Trace-intact (NEGATIVE) H 05/03/18 18:55 Urine Nitrate Negative (NEGATIVE) 05/03/18 18:55 Urine Bilirubin Moderate (NEGATIVE) H 05/03/18 18:55 Urine Urobilinogen 1.0 E.U./dL (<1 E.U./dL) H 05/03/18 18:55 Ur Leukocyte Esterase Negative John/uL (NEGATIVE) 05/03/18 18:55 Urine RBC 2 - 5 /hpf (0-2) H 05/03/18 18:55 Urine WBC 0 - 2 /hpf (0-6) 05/03/18 18:55 Ur Epithelial Cells None /hpf (0-5) 05/03/18 18:55 Urine Bacteria Few /hpf (NONE) 05/03/18 18:55 Salicylates < 1 mg/dL (2.0-20.0) L 05/03/18 17:34 Urine Opiates Screen Positive (NEGATIVE) H 05/03/18 18:55 Urine Methadone Screen Negative (NEGATIVE) 05/03/18 18:55 Acetaminophen < 10.0 ug/ml (10.0-20.0) L 05/04/18 15:30 Ur Barbiturates Screen Negative (NEGATIVE) 05/03/18 18:55 Ur Phencyclidine Scrn Negative (NEGATIVE) 05/03/18 18:55 Ur Amphetamines Screen Positive (NEGATIVE) H 05/03/18 18:55 U Benzodiazepines Scrn Negative (NEGATIVE) 05/03/18 18:55 U Oth Cocaine Metabols Negative (NEGATIVE) 05/03/18 18:55 U Cannabinoids Screen Positive (NEGATIVE) H 05/03/18 18:55 Alcohol, Quantitative < 10 mg/dL (0-10) 05/03/18 17:34 HIV 1&2 Antibody Screen Negative (NEGATIVE) 05/04/18 05:40 - Hospital Course Hospital Course: Patient is a 53 year old male, with PMH of depression, panic disorder, and herniated discs, who presented to the hospital due to a panic attack. Patient reported that he was at his home ([facility]) when he started having a panic attack, he took a "bunch of painkillers to help him relax." He stated that he received those pills from his neurologist. His neighbor then called the ambulance for him. He reported feeling mildly confused, but denied dizziness, syncope, chest pain, nausea, vomiting, fevers, chills, headache, neck pain, sob, abdominal pain, urinary symptoms, leg swelling. Patient reported that he had been feeling down and had thoughts about hurting himself. Denies homicidal ideations or plan. Upon admission, vitals were stable except for high BP 180s/110s. Patient started on Lisinopril 10mg QD after which BP his stabilized and within normal limits. On Lab work-up Tylenol levels were elevated at 99, UDS was positive for opiates, amphetamines, and cannabinoids. Poison control was contacted and instructions were given for management of Tylenol overdose. EKG showed sinus tachycardia 106 with widened QRS (142 ms and prolonged qtc 496 ms). Patient was started on N- acetylcysteine drip and given a total 2 doses of sodium bicarb. Repeat EKG showed qrs 138 ms and qtc 515 ms. Magnesium level was 1.9 which was repleted. Chest X-ray was negative and Echocardiogram complete showing EF >50% with normal systolic function and mild concentric LVH . Patient was placed on 1:1 observation due to Suicidal ideations and Psychiatry was consulted. Psychiatry recommended admission, but patient initially declined voluntary inpatient psychiatry; however, later he changed his mind. Patient was medically stable and ready for discharge to voluntary inpatient psychiatry unit. He reported no longer having any abdominal pain at this time and he is tolerating his diet. Patient verbalized understanding of all information provided. In addition, he was told to return to the emergency department if he had any recurring or new concerning symptoms. Above is a brief summary, for a detailed hospital encounter please refer to medical records. - Date & Time of H&P Date of H&P: 05/03/18 Time of H&P: 21:39 Discharge Exam - Head Exam Head Exam: ATRAUMATIC, NORMAL INSPECTION, NORMOCEPHALIC - Eye Exam Eye Exam: EOMI - ENT Exam ENT Exam: Mucous Membranes Moist - Respiratory Exam Respiratory Exam: NORMAL BREATHING PATTERN. absent: Wheezes, Respiratory Distress - Cardiovascular Exam Cardiovascular Exam: REGULAR RHYTHM. absent: Tachycardia - GI/Abdominal Exam GI & Abdominal Exam: Normal Bowel Sounds, Soft. absent: Tenderness - Neurological Exam Neurological exam: Alert, Oriented x3 - Psychiatric Exam Psychiatric exam: Normal Affect, Normal Mood - Skin Skin Exam: Dry, Intact, Normal Color, Warm Discharge Plan - Follow Up Plan Condition: FAIR Disposition: DISCHARGE TO PSYCH HOSPITAL Instructions: Drug Abuse and Drug Addiction (DC), Prescription Drug Abuse (DC), Acetaminophen Overdose (DC), Acetaminophen Overdose (GEN) Additional Instructions: Discharged to [facility] on floor 5B after patient signs consent form. Continue current active medications. Return to Local ER if symptoms worsen. Referrals: Harry Lee MD [Primary Care Provider] - <Zakia Velasquez - Last Filed: 05/07/18 14:49> Provider - Provider Date of Admission: 05/03/18 20:00 Attending physician: Zakia Velasquez MD Primary care physician: Harry Lee MD Consults: 05/03/18 21:17 Gastroenterology Consult Routine Comment: Consulting Provider: Damien Loomis Consulting Physician: Damien Loomis Reason for Consult: tylenol toxicity Psychiatry Consult Routine Comment: Consulting Provider: Pepper Chaney Consulting Physician: Pepper Chaney Reason for Consult: suicidal ideations Hospital Course - Lab Results Lab Results: Micro Results 05/03/18 23:35 Nose MRSA Culture (Admit) - Final MRSA NOT DETECTED Most Recent Lab Values WBC 7.7 10^3/uL (4.5-11.0) 05/07/18 07:10 RBC 4.99 10^6/uL (3.5-6.1) 05/07/18 07:10 Hgb 14.1 g/dL (14.0-18.0) 05/07/18 07:10 Hct 42.7 % (42.0-52.0) 05/07/18 07:10 MCV 85.6 fl (80.0-105.0) 05/07/18 07:10 MCH 28.3 pg (25.0-35.0) 05/07/18 07:10 MCHC 33.0 g/dl (31.0-37.0) 05/07/18 07:10 RDW 13.7 % (11.5-14.5) 05/07/18 07:10 Plt Count 400 10^3/uL (120.0-450.0) 05/07/18 07:10 MPV 9.8 fl (7.0-11.0) 05/07/18 07:10 Neut % (Auto) 41.1 % (50.0-68.0) L 05/07/18 07:10 Lymph % (Auto) 47.4 % (22.0-35.0) H 05/07/18 07:10 [place] % (Auto) 6.5 % (1.0-6.0) H 05/07/18 07:10 Eos % (Auto) 4.5 % (1.5-5.0) 05/07/18 07:10 Baso % (Auto) 0.5 % (0.0-3.0) 05/07/18 07:10 Lymph # (Auto) 3.7 (1.2-3.4) H 05/07/18 07:10 [place] # (Auto) 0.5 (0.1-0.6) 05/07/18 07:10 Eos # (Auto) 0.4 (0.0-0.7) 05/07/18 07:10 Baso # (Auto) 0.04 K/mm3 (0.0-2.0) 05/07/18 07:10 Absolute Neuts (auto) 3.18 (1.4-6.5) 05/07/18 07:10 PT 13.1 SECONDS (9.4-12.5) H 05/04/18 15:44 INR 1.18 05/04/18 15:44 APTT 38.8 Seconds (26.9-38.3) H 05/03/18 20:40 Sodium 139 mmol/L (132-148) 05/07/18 07:10 Potassium 4.2 mmol/L (3.6-5.0) 05/07/18 07:10 Chloride 102 mmol/L (98-107) 05/07/18 07:10 Carbon Dioxide 30 mmol/L (21-33) 05/07/18 07:10 Anion Gap 11 (10-20) 05/07/18 07:10 BUN 18 mg/dL (7-21) 05/07/18 07:10 Creatinine 0.7 mg/dl (0.8-1.5) L 05/07/18 07:10 Est GFR ( Amer) > 60 05/07/18 07:10 Est GFR (Non-Af Amer) > 60 05/07/18 07:10 POC Glucose (mg/dL) 138 mg/dL (65-110) H 05/03/18 18:05 Random Glucose 91 mg/dL (70-110) 05/07/18 07:10 Calcium 9.1 mg/dL (8.4-10.5) 05/07/18 07:10 Phosphorus 4.1 mg/dL (2.5-4.5) 05/07/18 07:10 Magnesium 2.3 mg/dL (1.7-2.2) H 05/07/18 07:10 Total Bilirubin 0.4 mg/dL (0.2-1.3) 05/07/18 07:10 AST 51 U/L (17-59) 05/07/18 07:10 ALT 52 U/L (7-56) 05/07/18 07:10 Alkaline Phosphatase 116 U/L (38-126) 05/07/18 07:10 Troponin I < 0.01 ng/mL 05/04/18 12:20 Total Protein 6.9 g/dL (5.8-8.3) 05/07/18 07:10 Albumin 4.0 g/dL (3.0-4.8) 05/07/18 07:10 Globulin 2.9 gm/dL 05/07/18 07:10 Albumin/Globulin Ratio 1.4 (1.1-1.8) 05/07/18 07:10 Urine Color Yellow (YELLOW) 05/03/18 18:55 Urine Appearance Clear (CLEAR) 05/03/18 18:55 Urine pH 5.5 (4.7-8.0) 05/03/18 18:55 Ur Specific [place] >= 1.030 (1.005-1.035) 05/03/18 18:55 Urine Protein 30 mg/dL (<30 mg/dL) H 05/03/18 18:55 Urine Glucose (UA) Negative mg/dL (NEGATIVE) 05/03/18 18:55 Urine Ketones 15 mg/dL (NEGATIVE) H 05/03/18 18:55 Urine Blood Trace-intact (NEGATIVE) H 05/03/18 18:55 Urine Nitrate Negative (NEGATIVE) 05/03/18 18:55 Urine Bilirubin Moderate (NEGATIVE) H 05/03/18 18:55 Urine Urobilinogen 1.0 E.U./dL (<1 E.U./dL) H 05/03/18 18:55 Ur Leukocyte Esterase Negative Jhon/uL (NEGATIVE) 05/03/18 18:55 Urine RBC 2 - 5 /hpf (0-2) H 05/03/18 18:55 Urine WBC 0 - 2 /hpf (0-6) 05/03/18 18:55 Ur Epithelial Cells None /hpf (0-5) 05/03/18 18:55 Urine Bacteria Few /hpf (NONE) 05/03/18 18:55 Salicylates < 1 mg/dL (2.0-20.0) L 05/03/18 17:34 Urine Opiates Screen Positive (NEGATIVE) H 05/03/18 18:55 Urine Methadone Screen Negative (NEGATIVE) 05/03/18 18:55 Acetaminophen < 10.0 ug/ml (10.0-20.0) L 05/04/18 15:30 Ur Barbiturates Screen Negative (NEGATIVE) 05/03/18 18:55 Ur Phencyclidine Scrn Negative (NEGATIVE) 05/03/18 18:55 Ur Amphetamines Screen Positive (NEGATIVE) H 05/03/18 18:55 U Benzodiazepines Scrn Negative (NEGATIVE) 05/03/18 18:55 U Oth Cocaine Metabols Negative (NEGATIVE) 05/03/18 18:55 U Cannabinoids Screen Positive (NEGATIVE) H 05/03/18 18:55 Alcohol, Quantitative < 10 mg/dL (0-10) 05/03/18 17:34 HIV 1&2 Antibody Screen Negative (NEGATIVE) 05/04/18 05:40 Attending/Attestation - Attestation I have personally seen and examined this patient.: Yes I have fully participated in the care of the patient.: Yes I have reviewed all pertinent clinical information, including history, physical exam and plan: Yes Notes (Text): 05/07/18 14:45 53 year old male with past medical history of panic disorder, depression, restless leg syndrome and substance abuse who presented with tylenol overdose. He is s/p NAC drip. Tylenol level has come down. LFTs are normal. UTox was also positive for opiates, amphetamine and cocaine. Patient was counselled on risks of continued substance abuse. Patient was started on lisinopril for hypertension with improvement of blood pressure. EKG showed LBBB (old) and prolonged QTc which has come down. Echocardiogram was reviewed. Patient is currently on 1:1 observation. Patient initially refused inpatient psychiatric admission as recommended by psychiatrist but now is agreeable. Patient will be transferred for inpatient psychiatric admission. Zakia Velasquez MD Hospitalist.
[2018-05-07 14:13] VITALS: BP 130/64; PULSE 64; RESP 20; TEMP 99.7
--- NOTE | 2018-05-08 03:30 | PN ---
DATE: 05/07/2018 FOLLOWUP NOTE SUBJECTIVE: Overnight, the patient was screened by [facility]. The patient said that he is willing to get treatment and willing to get admitted to the psychiatric inpatient unit under voluntary status that is why screening process was canceled. The patient was seen today at the morning time. The patient appears to be sleepy, guarded and depressed. The patient said that he had no choice, but this jingle writer assured that the patient had a choice, but the patient now wants to get admitted and wants his medication to be adjusted. The patient denied that he wanted to kill himself but reported that he is always feeling depressed. The patient is willing for medication adjustment and willing to be admitted to the psych maurer. The patient seems to be guarded, manipulative and not forthcoming with the information. That is why this jingle writer would like to observe the patient in the psych inpatient unit. The patient reported that he was feeling scared when he was using drugs and that is why he ended up here in the hospital. Paranoia cannot be excluded. OBJECTIVE: VITAL SIGNS: Reviewed. Temperature 99.7, pulse 64, blood pressure 130/64, respiration 26, and oxygen saturation is 96%. MEDICATIONS: Reviewed. Abilify 5 mg at the nighttime will be increased to twice a day, aspirin, Wellbutrin 100 mg daily, Prozac 20 mg daily. Most likely, this jingle writer will adjust medication and choose one medication instead of two medications of therapeutic doses. The patient is on Ativan as needed and Protonix. LABORATORY DATA: Reviewed. Most recent was from today. Discussed with the medical team. The patient is medically stable for transfer to the psychiatric inpatient unit. The patient signed consent for treatment. MENTAL STATUS EXAMINATION: As this jingle writer described above, the patient appears to be guarded and paranoia cannot be excluded. No eye contact. Mood described as "I am always depressed." Affect was constricted and angry. Thought process, concrete. Thought content, the patient denied visual, auditory or tactile hallucinations. Denied paranoid ideation at the moment of the interview, but the patient obviously is guarded and paranoid. Insight and judgment seems to be limited. Impulses are well controlled. IMPRESSION: Most likely, the patient has history of mood spectrum disorder, rule out schizoaffective disorder, polysubstance abuse and dependence, rule out mood disorder due to general medical condition or substance-induced mood disorder. PLAN: We will adjust medications. We will transfer the patient to the psychiatric inpatient unit for further evaluation and observation. Should you have any questions, give me a call back. The patient signed consent for treatment. Thank you very much for letting me to participate in care of your patient. Maeve Castorena MD
== END 2018-05-07 16:10 | DRG 449 ==
LOC: ED 17:06 → ERH 20:00 → EDBD 20:00 → ERH 21:23 → CCU 23:25 → 5RNO 05-05 16:15
PROVIDERS: ADMIT Internal Medicine; ATTEND Internal Medicine
DX: T39.1X2A Poisoning by 4-Aminophenol derivatives, intentional self-harm, initial encounter (principal); F15.10 Other stimulant abuse, uncomplicated; F12.10 Cannabis abuse, uncomplicated; F41.0 Panic disorder [episodic paroxysmal anxiety]; I10 Essential (primary) hypertension; G25.81 Restless legs syndrome; I44.7 Left bundle-branch block, unspecified; F31.9 Bipolar disorder, unspecified; F17.210 Nicotine dependence, cigarettes, uncomplicated; Z78.1 Physical restraint status; Y92.009 Unspecified place in unspecified non-institutional (private) residence as the place of occurrence of the external cause

== ENCOUNTER 2018-05-07 16:13 | Inpatient (IN) | payer MEDICAID ==
[2018-05-07 16:24] VITALS: BMI 28.2
[2018-05-07] MEDS ORDERED: Alum-Mag Hydrox-Simethicone Susp (30 mL) PO PRN (16:32)
[2018-05-07] MEDS ORDERED: Magnesium Hydroxide Susp 30 ml UD PO PRN (16:32)
--- NOTE | 2018-05-07 17:48 | PCM.BM ---
<Timi Haywood - Last Filed: 05/07/18 17:45> Treatment Plan Problems - Problems identified on initial assessmt FEELING OF WORTLESSNESS Date Initiated: 05/07/18 Time Initiated: 17:46 Assessment reference: HP, NA, Other HOPELESSNESS/HELPLESSNESS Date Initiated: 05/07/18 Time Initiated: 17:46 Assessment reference: HP, NA, Other Status: Active INEFFECTIVE COPING Date Initiated: 05/07/18 Time Initiated: 17:47 Assessment reference: HP, NA, Other Status: Active SOCIAL ISOLATION Date Initiated: 05/07/18 Time Initiated: 17:47 Assessment reference: HP, NA, Other Status: Active Treatment assets and liabiliti Patient Assests: negotiates basic needs, cognitively intact, other Patient Liabilities: financial problems, poor support system, substance abuse, medical problems, other - Milieu Protocol Maintain good personal hygiene: daily Encourage regular showers, daily Remind patient to perform daily oral care, daily Assist patient to perform ADL's Maintain personal safety: daily Educate patient to report safety concerns to staff, daily Monitor environment for contraband/sharps Medication safety: Monitor for expected outcome, potential side effects: daily, Assess barriers to learning: daily, Assess readiness for medication education: daily Discharge/Continuing Care - Education Needs Education Needs: Patient Medication, Patient Diagnosis/Disease Process, Patient Coping Skills, Patient Anger Management skills, Patient Placement options, Patient Community resources, Patient Uses of Medical Equipment, Patient Health Practices/Safety, Patient Personal Hygiene/Grooming, Patient Aftercare Safety Plan - Discharge Discharge Criteria: Free of Suicidal thoughts, Free of Homicidal thoughts, Free of paranoid thoughts, Free of agitation, Normal sleep pattern <Maeve Castorena - Last Filed: 05/08/18 13:48> - Diagnosis (1) MDD (major depressive disorder) Status: Acute Interventions: 05/08/18 13:49 Psychoeducation Psychopharmacology/adjustment of medications as needed/ monitoring possible side effects Evaluate pt on daily basis Compliance with medications and follow up appointments Suicide and homicide risk assessment and prevention Relapse prevention Reduction of symptoms Improve functional status Family involvement As outpatient: cognitive behavioral therapy (2) JAIR (generalized anxiety disorder) Status: Acute Interventions: 05/08/18 13:49 Psychoeducation Psychopharmacology/adjustment of medications as needed/ monitoring possible side effects Evaluate pt on daily basis Discussion of importance of being compliant with medications and follow up appointments Suicide and homicide risk assessment and prevention, coping strategies, safety plan Reduction of symptoms Relaxation techniques and breathing exercises Improve functional status Family involvement Cognitive behavioral therapy as outpatient (3) Stimulant use disorder Status: Acute Interventions: 05/08/18 13:49 Maintaining sobriety Relapse prevention Possible rehabilitation Motivational interviewing 12-step programs: AA meetings <Nathaly Bettencourt - Last Filed: 05/09/18 10:00> Family Contact Family involvement: Famliy/SO not involved - Outside Agency [facility] Care involvment: Information-sharing Agency contact name: [facility] Agency contact number: [phone] <Justa Figueroa - Last Filed: 05/09/18 11:18>
[2018-05-08] MEDS: Pantoprazole 40 mg EC Tab PO SCH (06:31)
[2018-05-08 08:41] LABS: HDL CHOLESTEROL 44 mg/dL (29-60)
[2018-05-08 08:53] LABS: LDL CHOLESTEROL 53 mg/dL (0-129)
[2018-05-08 08:56] LABS: FREE T4 1.12 ng/dL (0.78-2.19)
--- NOTE | 2018-05-08 09:04 | CP.PCM.CON ---
<Ludwin Delatorre - Last Filed: 05/08/18 13:55> History of Present Illness - History of Present Illness History of Present Illness: Medicine Consult Note for Dr. Velasquez 52 year old male, past medical history of panic disorder, depression, mutli- substance abuse, restless leg syndrome, and fibromyalgia, consulted for medical management in the voluntary psychiatric unit. Patient was initially admitted for an intentional Tylenol overdose. Patient reports that he has been feeling down, and does think about hurting himself. Patient has hurt himself in the past as well, but would not elaborate on details of how and why. Denies homicidal ideations or plan. Currently complaining of restless legs and would like medication to control the discomfort. Denies fever, chills, nausea, vomiting, diarrhea, abdominal pain, shortness of breath, chest pain, palpitations, headaches, dizziness, or urinary symptoms. PMH: panic disorder, depression, restless leg syndrome, herniated discs, fibromyalgia PSH: sinus surgery (8 years ago), left knee surgery - torn meniscal tear (20 years ago) FH: denies SH: lives by self, currently at [facility]. Quit drinking 20 years ago. + tobacco user, smokes 1 ppd x 35 years. Smokes marijuana daily. Quit heroin, cocaine 10 years ago, used to snort, denies IV drug use. ALL: NKDA Meds: prozac, wellbutrin, pramipexole, sevella PMD: [facility] (in [place]) Neurologist: Wes ( in [place]) Review of Systems - Constitutional Constitutional: absent: Chills, Fever, Weakness - EENT Eyes: absent: Blurred Vision, Change in Vision Nose/Mouth/Throat: absent: Nasal Congestion, Nasal Discharge - Cardiovascular Cardiovascular: absent: Chest Pain, Dyspnea - Respiratory Respiratory: absent: Cough, Dyspnea - Gastrointestinal Gastrointestinal: absent: Abdominal Pain, Nausea, Vomiting - Genitourinary Genitourinary: absent: Difficulty Urinating, Dysuria - Musculoskeletal Musculoskeletal: absent: Back Pain, Neck Pain - Integumentary Integumentary: absent: Bleeding Lesions, Changing Lesions - Neurological Neurological: absent: Confusion, Dizziness - Psychiatric Psychiatric: Anxiety, Depression Past Patient History - Past Social History Smoking Status: Unknown If Ever Smoked - MUSCULOSKELETAL/RHEUMATOLOGICAL Hx Falls: No (PT CONFUSED) - PSYCHIATRIC Hx Substance Use: Yes - SURGICAL HISTORY Hx Surgeries: No Meds Allergies/Adverse Reactions: Allergies Allergy/AdvReac Type Severity Reaction Status Date / Time No Known Allergies Allergy ANAPHYLAXIS Verified 05/07/18 19:07 - Medications Medications: Current Medications Acetaminophen (Tylenol 325mg Tab) 650 mg PO Q6H PRN PRN Reason: Pain, Mild (1-3) Al Hydrox/Mg Hydrox/Simethicone (Maalox Plus 30 Ml) 30 ml PO DAILY PRN PRN Reason: Indigestion / Heartburn Aripiprazole (Abilify) 5 mg PO AMHS [facility] Last Admin: 05/08/18 08:50 Dose: 5 mg Aspirin (Aspirin Chewable) 81 mg PO DAILY [facility] Last Admin: 05/08/18 08:50 Dose: 81 mg Bupropion HCl (Wellbutrin) 100 mg PO DAILY [facility] Last Admin: 05/08/18 08:49 Dose: 100 mg Fluoxetine HCl (Prozac) 20 mg PO DAILY [facility] Last Admin: 05/08/18 08:50 Dose: 20 mg Lisinopril (Zestril) 10 mg PO DAILY [facility] Last Admin: 05/08/18 08:49 Dose: 10 mg Lorazepam (Ativan) 2 mg PO Q6H PRN; Protocol PRN Reason: Agitation Last Admin: 05/08/18 08:53 Dose: 2 mg Lorazepam (Ativan) 2 mg IM Q6H PRN; Protocol PRN Reason: Anxiety Magnesium Hydroxide (Milk Of Magnesia) 30 ml PO DAILY PRN PRN Reason: Constipation Pantoprazole Sodium (Protonix Ec Tab) 40 mg PO 0600 [facility] Last Admin: 05/08/18 06:31 Dose: 40 mg Ziprasidone (Geodon Cap) 20 mg PO Q6H PRN; Protocol PRN Reason: Agitation Ziprasidone (Geodon Inj) 20 mg IM Q6H PRN; Protocol PRN Reason: Agitation Physical Exam - Constitutional Appears: Well, Non-toxic, No Acute Distress - Head Exam Head Exam: ATRAUMATIC, NORMAL INSPECTION, NORMOCEPHALIC - Eye Exam Eye Exam: EOMI - ENT Exam ENT Exam: Mucous Membranes Moist - Respiratory Exam Respiratory Exam: NORMAL BREATHING PATTERN. absent: Respiratory Distress - Cardiovascular Exam Cardiovascular Exam: REGULAR RHYTHM. absent: Tachycardia - GI/Abdominal Exam GI & Abdominal Exam: Normal Bowel Sounds, Soft. absent: Tenderness - Extremities Exam Extremities exam: Positive for: full ROM, pedal pulses present - Neurological Exam Neurological exam: Alert, Oriented x3 - Psychiatric Exam Psychiatric exam: Depressed, Flat Affect - Skin Skin Exam: Dry, Intact, Normal Color, Warm Results - Vital Signs Recent Vital Signs: Last Vital Signs Temp 97.9 F 05/08/18 07:00 Pulse 88 05/08/18 08:49 Resp 18 05/08/18 07:00 BP 120/76 05/08/18 08:49 Pulse Ox - Labs Labs: Laboratory Results - last 24 hr 05/07/18 05/08/18 05/08/18 21:10 08:00 08:00 POC Glucose (mg/dL) 290 H Triglycerides 148 Cholesterol 125 L LDL Cholesterol Direct 53 HDL Cholesterol 44 Free T4 1.12 Assessment & Plan - Assessment and Plan (Free Text) Assessment: 53M, PMH of panic disorder, depression, restless leg syndrome, herniated discs, and multi-substance abuse, admitted for Tylenol overdose. Patient now in voluntary psych unit for further evaluation and management. Plan: Suicidal Ideations and Depression - Currently in inpatient voluntary psychiatry unit - Continue medications per psychiatry's discretion - Abilify 10mg QD - Effexor 37.5mg QD - Ziprasidone 20mg PO Q6H PRN, 20mg IM Q6H PRN - Ativan 1mg Q6H PRN Tylenol Overdose - N-acetylcysteine drip completed - Patient tylenol levels <10 - AST/ALT wnl - Psychiatry following Hyperglycemia - ISS, low - Accuchecks - Hypoglycemia protocol - F/u Hgb A1c - Diabetic diet - Diabetic education referral - Counseled on diet and risk reduction New onset High Blood Pressure - Lisinopril 10mg PO QD - ECHO showed dilated LA, mild concentric LVH, mild MR and mild TR - Repeat EKG: NSR, LBBB, Left axis deviation. LBBB is old. - Monitor vitals and hemodynamic stability PPX DVT: SCDs GI: Protonix 40 QD Patient plan discussed with Dr. Ron Delatorre <Zakia Velasquez - Last Filed: 05/08/18 15:34> Meds - Medications Medications: Current Medications Acetaminophen (Tylenol 325mg Tab) 650 mg PO Q6H PRN PRN Reason: Pain, Mild (1-3) Al Hydrox/Mg Hydrox/Simethicone (Maalox Plus 30 Ml) 30 ml PO DAILY PRN PRN Reason: Indigestion / Heartburn Aripiprazole (Abilify) 10 mg PO DAILY [facility] Aspirin (Aspirin Chewable) 81 mg PO DAILY [facility] Last Admin: 05/08/18 08:50 Dose: 81 mg Dextrose (Dextrose 50% Inj) 0 ml IV STAT PRN; Protocol PRN Reason: Hypoglycemia Protocol Dextrose (Dextrose 5% In Water 1000 Ml) 1,000 mls @ 0 mls/hr IV .Q0M PRN; Protocol PRN Reason: Hypoglycemia Protocol Insulin Human Regular (Humulin R Low) 0 units SC ACHS [facility]; Protocol Last Admin: 05/08/18 12:34 Dose: Not Given Lisinopril (Zestril) 10 mg PO DAILY [facility] Last Admin: 05/08/18 08:49 Dose: 10 mg Lorazepam (Ativan) 1 mg IM Q6H PRN; Protocol PRN Reason: Anxiety Lorazepam (Ativan) 1 mg PO Q6H PRN; Protocol PRN Reason: Agitation Magnesium Hydroxide (Milk Of Magnesia) 30 ml PO DAILY PRN PRN Reason: Constipation Pantoprazole Sodium (Protonix Ec Tab) 40 mg PO 0600 [facility] Last Admin: 05/08/18 06:31 Dose: 40 mg Venlafaxine HCl (Effexor Xr) 37.5 mg PO DAILY [facility] Last Admin: 05/08/18 14:37 Dose: 37.5 mg Ziprasidone (Geodon Cap) 20 mg PO Q6H PRN; Protocol PRN Reason: Agitation Ziprasidone (Geodon Inj) 20 mg IM Q6H PRN; Protocol PRN Reason: Agitation Results - Vital Signs Recent Vital Signs: Last Vital Signs Temp 97.9 F 05/08/18 07:00 Pulse 88 05/08/18 08:49 Resp 18 05/08/18 07:00 BP 120/76 05/08/18 08:49 Pulse Ox - Labs Labs: Laboratory Results - last 24 hr 05/07/18 05/08/18 05/08/18 21:10 08:00 08:00 POC Glucose (mg/dL) 290 H Triglycerides Cholesterol LDL Cholesterol Direct HDL Cholesterol Free T4 1.12 TSH 3rd Generation 1.35 RPR Nonreactive 05/08/18 08:00 POC Glucose (mg/dL) Triglycerides 148 Cholesterol 125 L LDL Cholesterol Direct 53 HDL Cholesterol 44 Free T4 TSH 3rd Generation RPR Attending/Attestation - Attestation I have personally seen and examined this patient.: Yes I have fully participated in the care of the patient.: Yes I have reviewed all pertinent clinical information: Yes Notes (Text): 05/08/18 15:31 53 year old male with past medical history of depression, anxiety and substance abuse who presented initially after tylenol overdose. He is s/p NAC treatment. LFTs have been normal and tylenol level has come down. He was transferred to inpatient psychiatric unit. Medical consultation was requested for follow up. He is on lisinopril for hypertension. Blood pressure has been stable. Hyperglycemia is noted and A1c level is ordered to check for underlying diabetes. Zakia Velasquez MD Hospitalist.
[2018-05-08] MEDS ORDERED: Dextrose 50% SYRINGE Inj (50 ml) IV PRN (11:18)
[2018-05-08] MEDS: Insulin Reg-LOW-Coverage SC SCH ×3 (12:34→21:43)
--- NOTE | 2018-05-08 13:47 | PCM.PSYCH ---
Initial Psychiatric Evaluation - Initial Psychiatric Evaluation Type of Admission: Voluntary Legal Status: Capacity Chief Complaint (in patient's own words): "I always feel depressed" Patient's Reaction to Hospitalization: Patient was transferred from the medical floor for evaluation and stabilization as well as observation depressive symptoms and possible suicidal attempt History of Present Illness and Precipitating Events: Shortly, patient is 52-year old male, self-reported history of major depressive disorder, anxiety disorder, stimulant use disorder, multiple psychiatric admissions in the past, treated for suicidal attempts, patient initially was admitted to ICU status post Tylenol overdose, patient was downgraded to the medical side, patient made it clear to psychiatrist decommissioning well site manager that he wanted to end up his life, patient was refused to sign in to the psychiatric inpatient unit initially, patient was screened by [facility], but patient changed his mind during the interview, willing to get better and be admitted to the psychiatric inpatient unit under voluntary status. Please see previous notes for more detailed information. From the medical standpoint in the emergency room patient QTC was prolonged by 15 mm asms, urine drug screen was positive for cannabis as well as opioids, patient had tachycardia, and acetaminophen level was 99. Patient was stable enough to be transferred to the psychiatric inpatient unit yesterday May 07, 2018. Patient was seen today at the treatment team meeting room with medical students as well as social media senior associate. Presented to be disengaged, depressed, poor personal hygiene, fair ADLs. At the beginning of the interview patient was guarded, was giving yes no answers only, by the end of the interview patient is more willing to provide history. Patient said prior to come to the hospital he was in his friend's house and they were using drugs, patient reported that after he came back to his room started to feel paranoid, patient reported that he took a handful of acetaminophen in order to help himself, patient reported he started to feel worse, he went to his neighbor, I asked him to call 911 because he was not feeling well. Patient adamantly denied that he wanted to end up his life but patient seems to be an unreliable historian because patient said it clear to psychiatrist decommissioning well site manager that he wanted to end of his life. Patient reported that he suffered from major depressive disorder for past 6 years, patient reported that he was not able to function, he was feeling hopeless and helpless, patient was on multiple psychotropic medications, "but psychiatrist each time change it to something else". Patient reported being on Zoloft, Paxil, Cymbalta, currently patient is on Wellbutrin as well as Prozac. Patient reported that Prozac was decreased recently for unknown reason. Patient reported that he was not able to function, sleep all day long and up all night, patient is irritable at the morning time patient was not able to take care of himself. Patient reported that he is in the process of obtaining disability for his mental illness and chronic neck pain. Patient reported that he was feeling very anxious, worried about future, past, finances patient reported that it affects his life. Patient denied hearing voices denied seeing things but reports that he feels paranoid at times. Patient denies history of being abused. In regards of drugs, drug of choice is crystal meth, patient reports that he is using twice or 3 times a week, patient reports that he smokes marijuana about 2- 3 times a week, patient reported that he has a license for medical marijuana but was buying it off the streets. He Patient reports smoking about half of the pack a day. Nicotine patch was offered, patient declined that offer. Past psychiatric history: Patient has at least 3 psychiatric admissions, patient reports at least 3 suicidal attempts, first was at age of 32 patient overdosed on volume, patient stayed in ICU for about 2 days and was transferred to [facility] where he stayed for about a week, second suicidal attempt was somewhat right after the first 1, patient was overdosed on Seroquel and was admitted to [facility] where he stayed for 2 days, third suicidal attempt was prior to this hospitalization as per patient. Currently under care of Dr. Otero at [facility]. Medical history: Patient has history of asthma, chronic neck pain, fibromyalgia. Family history: Patient mother and grandmother suffered from major depressive disorder. 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 Lab Results 05/08/18 08:00: Triglycerides 148, Cholesterol 125 L, LDL Cholesterol Direct 53, HDL Cholesterol 44 05/08/18 08:00: Free T4 1.12, TSH 3rd Generation 1.35 05/07/18 21:10: POC Glucose (mg/dL) 290 H Vital Signs Temp Pulse Resp BP 05/08/18 08:49 88 120/76 05/08/18 07:00 97.9 F 88 18 120/76 05/07/18 16:30 97.9 F 77 18 119/76 The patient failed the outpatient lower level of care: Yes Current Medications: Active Medications Generic Name Dose Route Start Last Admin Trade Name Freq PRN Reason Stop Dose Admin Acetaminophen 650 mg 05/07/18 16:25 Tylenol 325mg Tab PO Q6H PRN Pain, Mild (1-3) Al Hydrox/Mg Hydrox/Simethicone 30 ml 05/07/18 16:32 Maalox Plus 30 Ml PO DAILY PRN Indigestion / Heartburn Aripiprazole 10 mg 05/09/18 08:00 Abilify PO DAILY [facility] Aspirin 81 mg 05/08/18 08:00 05/08/18 08:50 Aspirin Chewable PO 81 mg DAILY [facility] Administration Dextrose 0 ml 05/08/18 11:18 Dextrose 50% Inj IV STAT PRN Hypoglycemia Protocol Protocol Dextrose 1,000 mls @ 0 mls/hr 05/08/18 11:18 Dextrose 5% In Water 1000 Ml IV .Q0M PRN Hypoglycemia Protocol Protocol Per Protocol Insulin Human Regular 0 units 05/08/18 11:30 05/08/18 12:34 Humulin R Low SC Not Given ACHS [facility] Protocol Lisinopril 10 mg 05/08/18 08:00 05/08/18 08:49 Zestril PO 10 mg DAILY [facility] Administration Lorazepam 1 mg 05/08/18 10:39 Ativan IM Q6H PRN Anxiety Protocol Lorazepam 1 mg 05/08/18 10:39 Ativan PO Q6H PRN Agitation Protocol Magnesium Hydroxide 30 ml 05/07/18 16:32 Milk Of Magnesia PO DAILY PRN Constipation Pantoprazole Sodium 40 mg 05/08/18 06:00 05/08/18 06:31 Protonix Ec Tab PO 40 mg 0600 [facility] Administration Venlafaxine HCl 37.5 mg 05/08/18 10:45 Effexor Xr PO DAILY [facility] Ziprasidone 20 mg 05/07/18 16:56 Geodon Cap PO Q6H PRN Agitation Protocol Ziprasidone 20 mg 05/07/18 17:02 Geodon Inj IM Q6H PRN Agitation Protocol Present on Admission - Present on Admission Any Indicators Present on Admission: No Review of Systems - Review of Systems Systems not reviewed;Unavailable: Acuity of Condition - Constitutional Constitutional: As Per HPI - EENT Eyes: As Per HPI Ears: As Per HPI Nose/Mouth/Throat: As Per HPI - Cardiovascular Cardiovascular: As Per HPI - Respiratory Respiratory: As Per HPI - Gastrointestinal Gastrointestinal: As Per HPI - Genitourinary Genitourinary: As Per HPI - Reproductive: Male Reproductive:Male: As Per HPI - Musculoskeletal Musculoskeletal: As Per HPI - Integumentary Integumentary: As Per HPI - Neurological Neurological: As Per HPI - Psychiatric Psychiatric: As Per HPI - Endocrine Endocrine: As Per HPI - Hematologic/Lymphatic Hematologic: As Per HPI Past Patient History - Past Psychiatric History Previous Treatment History: Inpatient Prior Professional Help: see HPI Prior Psychiatric Treatment: see HPI At what hospital: see HPI Duration: see HPI Nature of Treatment: see HPI Explanation of prior treatment: see HPI - PSYCHIATRIC Hx Psychophysiologic Disorder: Yes Hx Anxiety: Yes Hx Depression: Yes Hx Paranoia: Yes Hx Psychosis: Yes Hx Substance Use: Yes - MUSCULOSKELETAL/RHEUMATOLOGICAL Hx Falls: No (PT CONFUSED) - SURGICAL HISTORY Hx Surgeries: No - Medical/Surgical History Reviewed & confirmed: by tx Meds Allergies/Adverse Reactions: Allergies Allergy/AdvReac Type Severity Reaction Status Date / Time No Known Allergies Allergy ANAPHYLAXIS Verified 05/07/18 19:07 Mental Status Examination - Personal Presentation Personal Presentation: Looks younger than stated age - Affect Affect: Flat - Motor Activity Motor Activity: Psychomotor Retardation - Reliability in Providing Information Reliability in Providing Information: Poor, due to altered mood - Speech Speech: Organized - Mood Mood: Depressed, Anxious - Formal Thought Process Formal Thought Process: Paranoia - Obsessions/Compulsions Obsessions: None Compulsions: None - Cognitive Functions Orientation: Person, Place, Situation Sensorium: Alert Attention/Concentration: Easily distracted Estimate of Intelligence: Average Judgement: Intact, as evidence by: Insight regarding need for hospitalization - Risk Risk: Suicidal, Self-mutilation, Diminished functioning - Strength & Assets Inventory Strength & Assets Inventory: Cooperative, Other (Good physical health) - Limitations Limitations: Other (Patient was reluctant to get help, impulsive behavior, his tory of suicidal attempts) Psychiatric Physical Exam - Physical Exam Reviewed and confirmed: Emergency Department Physical Exam Results - Vital Signs Recent Vital Signs: Last Vital Signs Temp 97.9 F 05/08/18 07:00 Pulse 88 05/08/18 08:49 Resp 18 05/08/18 07:00 BP 120/76 05/08/18 08:49 Pulse Ox - Labs Labs: Laboratory Results - last 24 hr 05/07/18 05/08/18 05/08/18 21:10 08:00 08:00 POC Glucose (mg/dL) 290 H Triglycerides 148 Cholesterol 125 L LDL Cholesterol Direct 53 HDL Cholesterol 44 Free T4 1.12 TSH 3rd Generation 1.35 - EKG Data EKG Interpreted by: ER Physician DSM Plan - DSM 5 DSM 5 Diagnosis: As per history of major depressive disorder, treatment resistant Rule out generalized anxiety disorder Stimulant use disorder Rule substance-induced psychosis/ substance-induced mood disorder - Recommended/Plan of Treatment Treatment Recommendations and Plan of Treatment: Milieu/structure/supportive therapy SW consultation for discharge plan and social issues Med management: Wellbutrin will be discontinued because it would give psychotic symptoms more over patient reported no improvement on this medication Prozac will be discontinued Effexor was started for depression and anxiety Abilify was increased to 10 mg daily As needed medications Family involvement Follow up on labs Will monitor closely Pt was educated about risk/benefits and alternatives of medications, coping strategies (safety plan, suicide prevention), relapse prevention, importance of follow up with psychiatrist and therapist, stay away from drugs/alcohol/smoking Projected ELOS: 7 days Prognosis: guarded Discharge Plan and Discharge Criteria: Mood will be stable, pt will be more hopeful, will be not psychotic or anxious, will be tolerating medications well, will not have major side effects, will be able to function, will not pose threat to self or others. - Tobacco Cessation Tobacco Use Status for the last 30 days: Heavy User(>=5 cigs &/or cigars/pipes daily) Tobacco Use Treatment Practical Counseling Provided: Yes Tobacco Use Treatment FDA-Approved Cessation Medication Provided: No Reason for not providing: Patient refused tobacco cessation medication - Alcohol or Substance Abuse Does the patient have an Alcohol or Substance Abuse Disorder: Yes Initial Psych Certification - Initial Certification I certify that the inpatient psychiatric facility admission was medically necessary for either: Treatment which could reasonbly be expected to improve pt's condition I estimate of hospitalization is necessary for proper treatment of the patient: 7 Unit of Time: Days My plans for post-hospital care for this patient are: Dual diagnosis program [facility] outpatient program Med management
[2018-05-08] MEDS: Venlafaxine 37.5 mg ER Cap PO SCH (14:37)
[2018-05-09] MEDS: Pantoprazole 40 mg EC Tab PO SCH (07:13)
[2018-05-09] MEDS: Insulin Reg-LOW-Coverage SC SCH ×4 (09:37→21:03)
[2018-05-09] MEDS: Venlafaxine 37.5 mg ER Cap PO SCH (09:42)
--- NOTE | 2018-05-09 14:42 | PCM.PYCHPN ---
Psychiatric Progress Note - Psychiatric Progress Note Patient seen today, length of contact: 30min Patient Chief Complaint: "I always feel depressed" Problems Identified/Issues Discussed: Risk/benefits and alternatives of medications discussed, suicide/ homicide prevention, past psychiatric h/o, current psychiatric symptoms, medical problems, risk/benefits and alternatives of medications, medications compliance, coping strategies, substance abuse h/o, relapse prevention, importance of follow up with psychiatrist and therapist, discharge plan. Medical Problems: s/p overdose on tylenol Diagnostic Results: Lab Results 05/09/18 07:37: POC Glucose (mg/dL) 84 05/08/18 21:14: POC Glucose (mg/dL) 104 05/08/18 16:19: POC Glucose (mg/dL) 110 05/08/18 12:31: POC Glucose (mg/dL) 86 05/08/18 10:45: Hemoglobin A1c 5.5 05/08/18 08:00: Triglycerides 148, Cholesterol 125 L, LDL Cholesterol Direct 53, HDL Cholesterol 44 05/08/18 08:00: RPR Nonreactive 05/08/18 08:00: Free T4 1.12, TSH 3rd Generation 1.35 05/07/18 21:10: POC Glucose (mg/dL) 290 H Vital Signs Temp Pulse Resp BP 05/09/18 09:41 60 113/72 05/09/18 07:00 97.9 F 60 18 113/72 05/08/18 16:00 79 123/73 05/08/18 08:49 88 120/76 05/08/18 07:00 97.9 F 88 18 120/76 05/07/18 16:30 97.9 F 77 18 119/76 DSM 5 Symptoms Update: Shortly, patient is 52-year old male, self-reported history of major depressive disorder, anxiety disorder, stimulant use disorder, multiple psychiatric admissions in the past, treated for suicidal attempts, patient initially was admitted to ICU status post Tylenol overdose, patient was downgraded to the medical side, patient made it clear to psychiatrist carbonation equipment operator that he wanted to end up his life, patient was refused to sign in to the psychiatric inpatient unit initially, patient was screened by [facility], but patient changed his mind during the interview, willing to get better and be admitted to the psychiatric inpatient unit under voluntary status. Please see previous notes for more detailed information. From the medical standpoint in the emergency room patient QTC was prolonged by 15 mm asms, urine drug screen was positive for cannabis as well as opioids, patient had tachycardia, and acetaminophen level was 99. Patient was seen at the treatment team meeting, patient presented to be sleepy, not shaved, depressed. Patient reported that he feels "better", patient reported that he slept well, patient denied any side effects from the medications as per staff patient is self isolating,. Not attending groups, but no agitation, no aggression. Patient hospital conversation with social services designee, patient finally admitted that he tried to kill himself because she was feeling paranoid and was scared for his life, patient also felt that somebody is going to kill him, and in order not to be killed by a stranger, patient wanted to kill himself first, that is why pt overdosed on medications. Now patient feels "great to be alive" Impression: Major depressive disorder as per history Generalized anxiety disorder Stimulant use disorder Stimulants use psychosis Medication Change: Yes Medical Record Reviewed: Yes Consults ordered or reviewed: pt was seen by medical team Mental Status Examination - Cognitive Function Orientation: Person, Place, Situation Memory: Intact Attention: Poor Concentration: Poor Association: WNL Fund of Knowledge: WNL - Mood Mood: Depressed, Anxious - Affect Affect: Flat - Formal Thought Process Formal Thought Process: Paranoia - Suicidal Ideation Suicidal Ideation: No - Homicidal Ideation Homicidal Ideation: No Goal/Treatment Plan - Goal/Treatment Plan Need for Continued Stay: Remain at risks for inpatient hospitalization, Severe depression anxiety, Discharge may exacerbated symptoms, Severe functional impairment Progress Toward Problem(s) and Goals/Treatment Plan: Milieu/structure/supportive therapy consultation for discharge plan and social issues Med management: Wellbutrin discontinued Prozac discontinued Effexor increased to 75 mg for depression and anxiety Abilify 10 mg daily for mood stabilization and psychosis As needed medications Family involvement Follow up on labs Will monitor closely Pt was educated about risk/benefits and alternatives of medications, coping strategies (safety plan, suicide prevention), relapse prevention, importance of follow up with psychiatrist and therapist, stay away from drugs/alcohol/smoking Estimated Date of D/C: 05/14/18
--- NOTE | 2018-05-09 22:02 | CON ---
DATE: 05/09/2018 LOCATION: The patient is seen on psychiatric floor in [facility]. CHIEF COMPLAINT: Depression and an Infectious Disease consultation was called because the patient takes Truvada for prophylaxis. HISTORY OF PRESENT ILLNESS: This is a 52-year-old male with past medical history of depression, anxiety, is homosexual, he has receptive anal sex and he is on Truvada for prophylaxis. However, he has not been taking his Truvada for some time. He states that he is admitted to the psychiatric floor for depression. REVIEW OF SYSTEMS: Reveals no fevers, no chills. No nausea, no vomiting, no chest pain. PAST MEDICAL HISTORY: Significant for depression and anxiety. PAST SURGICAL HISTORY: Noncontributory. ALLERGIES: NO KNOWN DRUG ALLERGIES. SOCIAL HISTORY: He is homosexual and the patient has receptive anal sex. MEDICATIONS AT HOME: Include intermittent Truvada on and off, he has not been taking. He also takes Prozac, aspirin. LABORATORY EXAMINATION: Reveals the patient's chemistries are noted. The patient has a negative RPR. He has had a negative HIV. A IVON test negative. ASSESSMENT AND PLAN: This is a 52-year-old male with depression, anxiety, and on prep, preventive treatment prior to exposure to human immunodeficiency virus, on Truvada. He should resume his Truvada and safe sex has been explained to him. We will order an HIV fourth generation test. We will follow with you. Wai Isidro MD
[2018-05-10] MEDS: Pantoprazole 40 mg EC Tab PO SCH (06:05)
[2018-05-10] MEDS: Insulin Reg-LOW-Coverage SC SCH ×4 (08:00→21:19)
[2018-05-10] MEDS: Venlafaxine 37.5 mg ER Cap PO SCH (09:08)
--- NOTE | 2018-05-10 14:04 | PCM.PYCHPN ---
Psychiatric Progress Note - Psychiatric Progress Note Patient seen today, length of contact: 30min Patient Chief Complaint: "I feel better" Problems Identified/Issues Discussed: Risk/benefits and alternatives of medications discussed, suicide/ homicide prevention, past psychiatric h/o, current psychiatric symptoms, medical problems, risk/benefits and alternatives of medications, medications compliance, coping strategies, substance abuse h/o, relapse prevention, importance of follow up with psychiatrist and therapist, discharge plan. Medical Problems: s/p overdose on tylenol Diagnostic Results: Lab Results 05/09/18 07:37: POC Glucose (mg/dL) 84 05/08/18 21:14: POC Glucose (mg/dL) 104 05/08/18 16:19: POC Glucose (mg/dL) 110 05/08/18 12:31: POC Glucose (mg/dL) 86 05/08/18 10:45: Hemoglobin A1c 5.5 05/08/18 08:00: Triglycerides 148, Cholesterol 125 L, LDL Cholesterol Direct 53, HDL Cholesterol 44 05/08/18 08:00: RPR Nonreactive 05/08/18 08:00: Free T4 1.12, TSH 3rd Generation 1.35 05/07/18 21:10: POC Glucose (mg/dL) 290 H Vital Signs Temp Pulse Resp BP 05/09/18 09:41 60 113/72 05/09/18 07:00 97.9 F 60 18 113/72 05/08/18 16:00 79 123/73 05/08/18 08:49 88 120/76 05/08/18 07:00 97.9 F 88 18 120/76 05/07/18 16:30 97.9 F 77 18 119/76 DSM 5 Symptoms Update: Shortly, patient is 52-year old male, self-reported history of major depressive disorder, anxiety disorder, stimulant use disorder, multiple psychiatric admissions in the past, treated for suicidal attempts, patient initially was admitted to ICU status post Tylenol overdose, patient was downgraded to the medical side, patient made it clear to psychiatrist economics faculty member that he wanted to end up his life, patient was refused to sign in to the psychiatric inpatient unit initially, patient was screened by [facility], but patient changed his mind during the interview, willing to get better and be admitted to the psychiatric inpatient unit under voluntary status. Please see previous notes for more detailed information. From the medical standpoint in the emergency room patient QTC was prolonged by 15 mm asms, urine drug screen was positive for cannabis as well as opioids, patient had tachycardia, and acetaminophen level was 99. Patient was seen next to the nursing station today, patient presented to be disheveled, poor personal hygiene, as per staff patient was feeling anxious, required Ativan as needed, majority of the time patient staying in his room, but more visible in the unit. Patient reported that he feels "better", patient reported that he slept well, patient denied any side effects from the medications as per staff patient is self isolating,. Not attending groups, but no agitation, no aggression. 05/09/18 Patient hospital conversation with social work specialist, patient finally admitted that he tried to kill himself because she was feeling paranoid and was scared for his life, patient also felt that somebody is going to kill him, and in order not to be killed by a stranger, patient wanted to kill himself first, that is why pt overdosed on medications. Now patient feels "great to be alive" Impression: Major depressive disorder as per history Generalized anxiety disorder Stimulant use disorder Stimulants use psychosis Medication Change: No (Adjusted yesterday) Medical Record Reviewed: Yes Consults ordered or reviewed: pt was seen by medical team Mental Status Examination - Cognitive Function Orientation: Person, Place, Situation Memory: Intact Attention: Poor Concentration: Poor Association: WNL Fund of Knowledge: WNL - Mood Mood: Depressed, Anxious - Affect Affect: Flat - Formal Thought Process Formal Thought Process: Paranoia - Suicidal Ideation Suicidal Ideation: No - Homicidal Ideation Homicidal Ideation: No Goal/Treatment Plan - Goal/Treatment Plan Need for Continued Stay: Remain at risks for inpatient hospitalization, Severe depression anxiety, Discharge may exacerbated symptoms, Severe functional impairment Progress Toward Problem(s) and Goals/Treatment Plan: Milieu/structure/supportive therapy SW consultation for discharge plan and social issues Med management: Wellbutrin discontinued Prozac discontinued Effexor 75 mg for depression and anxiety Abilify 10 mg daily for mood stabilization and psychosis As needed medications Family involvement Follow up on labs Will monitor closely Pt was educated about risk/benefits and alternatives of medications, coping strategies (safety plan, suicide prevention), relapse prevention, importance of follow up with psychiatrist and therapist, stay away from drugs/alcohol/smoking Estimated Date of D/C: 05/14/18
--- NOTE | 2018-05-10 22:30 | PN ---
DATE: 05/10/2018 SUBJECTIVE: The patient is in bed, in no acute distress, nontoxic. PHYSICAL EXAMINATION: VITAL SIGNS: Temperature is 98, blood pressure is 113/60, respiratory rate of 18. HEENT: Unremarkable. NECK: Supple. LUNGS: Have decreased breath sounds. HEART: Normal S1, S2. ABDOMEN: Soft. LABORATORY DATA: Laboratory examination is noted. ASSESSMENT AND PLAN: A 52-year-old man who has history of depression and anxiety who takes Truvada for PrEP (preexposure prophylaxis), and he is homosexual with , anal sex. We will check on his HIV test. He states he will take his own Truvada since [facility] does not have Truvada on its formulary. He will have his own medications from home. He will check on the fourth-generation HIV test. Wai Isidro MD
[2018-05-11] MEDS: Pantoprazole 40 mg EC Tab PO SCH (07:04)
[2018-05-11] MEDS: Venlafaxine 37.5 mg ER Cap PO SCH (08:40)
[2018-05-11] MEDS: Insulin Reg-LOW-Coverage SC SCH (08:41)
--- NOTE | 2018-05-11 12:03 | PCM.PYCHPN ---
Psychiatric Progress Note - Psychiatric Progress Note Patient seen today, length of contact: 30min Patient Chief Complaint: "I did not sleep very well last night...." Problems Identified/Issues Discussed: Risk/benefits and alternatives of medications discussed, suicide/ homicide prevention, past psychiatric h/o, current psychiatric symptoms, medical problems, risk/benefits and alternatives of medications, medications compliance, coping strategies, substance abuse h/o, relapse prevention, importance of follow up with psychiatrist and therapist, discharge plan. Medical Problems: s/p overdose on tylenol Diagnostic Results: Lab Results 05/09/18 07:37: POC Glucose (mg/dL) 84 05/08/18 21:14: POC Glucose (mg/dL) 104 05/08/18 16:19: POC Glucose (mg/dL) 110 05/08/18 12:31: POC Glucose (mg/dL) 86 05/08/18 10:45: Hemoglobin A1c 5.5 05/08/18 08:00: Triglycerides 148, Cholesterol 125 L, LDL Cholesterol Direct 53, HDL Cholesterol 44 05/08/18 08:00: RPR Nonreactive 05/08/18 08:00: Free T4 1.12, TSH 3rd Generation 1.35 05/07/18 21:10: POC Glucose (mg/dL) 290 H Vital Signs Temp Pulse Resp BP 05/09/18 09:41 60 113/72 05/09/18 07:00 97.9 F 60 18 113/72 05/08/18 16:00 79 123/73 05/08/18 08:49 88 120/76 05/08/18 07:00 97.9 F 88 18 120/76 05/07/18 16:30 97.9 F 77 18 119/76 DSM 5 Symptoms Update: Shortly, patient is 52-year old male, self-reported history of major depressive disorder, anxiety disorder, stimulant use disorder, multiple psy chiatric admissions in the past, treated for suicidal attempts, patient initially was admitted to ICU status post Tylenol overdose, patient was downgraded to the medical side, patient made it clear to psychiatrist electronic specialist that he wanted to end up his life, patient was refused to sign in to the psychiatric inpatient unit initially, patient was screened by [facility], but patient changed his mind during the interview, willing to get better and be admitted to the psychiatric inpatient unit under voluntary status. Please see previous notes for more detailed information. From the medical standpoint in the emergency room patient QTC was prolonged by 15 mm asms, urine drug screen was positive for cannabis as well as opioids, patient had tachycardia, and acetaminophen level was 99. Patient was seen in his room, patient presented to be disheveled, poor personal hygiene, as per staff patient self isolating, not interested to attend groups, majority of the time patient staying in his room, but more visible in the unit. Patient reported that he feels "okay", when was asked about future plans, pt replied "I have no plans for a future", pt was given assignment to self his s hort time goals, will f/u tomorrow. patient denied any side effects from the medications as per staff patient is self isolating,. Not attending groups, but no agitation, no aggression. 05/09/18 Patient hospital conversation with transition social worker, patient finally admitted that he tried to kill himself because she was feeling paranoid and was scared for his life, patient also felt that somebody is going to kill him, and in order not to be killed by a stranger, patient wanted to kill himself first, that is why pt overdosed on medications. Now patient feels "great to be alive" Impression: Major depressive disorder as per history Generalized anxiety disorder Stimulant use disorder Stimulants use psychosis Medication Change: Yes (Effexor increased to 150 mg daily) Medical Record Reviewed: Yes Consults ordered or reviewed: pt was seen by medical team Mental Status Examination - Cognitive Function Orientation: Person, Place, Situation Memory: Intact Attention: Poor Concentration: Poor Association: WNL Fund of Knowledge: WNL - Mood Mood: Depressed, Anxious - Affect Affect: Flat - Formal Thought Process Formal Thought Process: Paranoia - Suicidal Ideation Suicidal Ideation: No - Homicidal Ideation Homicidal Ideation: No Goal/Treatment Plan - Goal/Treatment Plan Need for Continued Stay: Remain at risks for inpatient hospitalization, Severe depression anxiety, Discharge may exacerbated symptoms, Severe functional impairment Progress Toward Problem(s) and Goals/Treatment Plan: Milieu/structure/supportive therapy SW consultation for discharge plan and social issues Med management: Effexor 150 mg for depression and anxiety Abilify 10 mg daily for mood stabilization and psychosis As needed medications Family involvement Follow up on labs Will monitor closely Pt was educated about risk/benefits and alternatives of medications, coping strategies (safety plan, suicide prevention), relapse prevention, importance of follow up with psychiatrist and therapist, stay away from drugs/alcohol/smoking Estimated Date of D/C: 05/14/18
--- NOTE | 2018-05-11 14:53 | PN ---
DATE: 05/11/2018 SUBJECTIVE: The patient is seen in bed, in no acute distress. Nontoxic. PHYSICAL EXAMINATION: VITAL SIGNS: Temperature is 97, blood pressure is 95/60, respiratory rate of 20 and heart rate of 73. HEENT: Unremarkable. NECK: Supple. LUNGS: Decreased breath sounds. HEART: Normal, S1 and S2. ABDOMEN: Soft. LABORATORY DATA: Reveals the laboratories noted. ASSESSMENT AND PLAN: This is a 52-year-old male with history of depression, anxiety who takes Truvada for preexposure prophylaxis, and he is homosexual anal sex. We will check on his HIV status and we will check on his recommend taking continues Truvada once he is discharge.. We will follow. Wai Isidro MD
[2018-05-12] MEDS: Pantoprazole 40 mg EC Tab PO SCH (06:36)
[2018-05-12] MEDS: Venlafaxine 75 mg ER Cap PO SCH (09:02)
--- NOTE | 2018-05-12 14:20 | CP.PCM.PN ---
<Howard Archibald - Last Filed: 05/12/18 14:16> Subjective - Date & Time of Evaluation Date of Evaluation: 05/12/18 Time of Evaluation: 07:50 - Subjective Subjective: Howard Archibald D.O. PGY-3, Internal Medicine Resident, Infectious Disease Progress Note 52 year old male with a PMH of a past medical history of depression and anxiety and takes Truvada for PrEP currently in the voluntary psychiatric unit. Inf ectious disease consultation was requested. Patient was seen and examined in psych unit. Currently doing better everyday. No acute complaints at this time. Objective - Vital Signs/Intake and Output Vital Signs (last 24 hours): Temp Pulse Resp BP Pulse Ox 98.4 F 74 19 125/83 05/12/18 07:00 05/12/18 09:01 05/12/18 07:00 05/12/18 09:01 - Medications Medications: Current Medications Acetaminophen (Tylenol 325mg Tab) 650 mg PO Q6H PRN PRN Reason: Pain, Mild (1-3) Last Admin: 05/10/18 01:53 Dose: 650 mg Al Hydrox/Mg Hydrox/Simethicone (Maalox Plus 30 Ml) 30 ml PO DAILY PRN PRN Reason: Indigestion / Heartburn Aripiprazole (Abilify) 10 mg PO DAILY [facility] Last Admin: 05/12/18 09:02 Dose: 10 mg Aspirin (Aspirin Chewable) 81 mg PO DAILY [facility] Last Admin: 05/12/18 09:02 Dose: 81 mg Dextrose (Dextrose 50% Inj) 0 ml IV STAT PRN; Protocol PRN Reason: Hypoglycemia Protocol Dextrose (Dextrose 5% In Water 1000 Ml) 1,000 mls @ 0 mls/hr IV .Q0M PRN; Protocol PRN Reason: Hypoglycemia Protocol Lisinopril (Zestril) 10 mg PO DAILY [facility] Last Admin: 05/12/18 09:01 Dose: 10 mg Lorazepam (Ativan) 1 mg IM Q6H PRN; Protocol PRN Reason: Anxiety Lorazepam (Ativan) 1 mg PO Q6H PRN; Protocol PRN Reason: Agitation Magnesium Hydroxide (Milk Of Magnesia) 30 ml PO DAILY PRN PRN Reason: Constipation Mirtazapine (Remeron) 15 mg PO HS [facility] Pantoprazole Sodium (Protonix Ec Tab) 40 mg PO 0600 [facility] Last Admin: 05/12/18 06:36 Dose: 40 mg Venlafaxine HCl (Effexor Xr) 150 mg PO DAILY [facility] Last Admin: 05/12/18 09:02 Dose: 150 mg Ziprasidone (Geodon Cap) 20 mg PO Q6H PRN; Protocol PRN Reason: Agitation Last Admin: 05/11/18 21:29 Dose: 20 mg Ziprasidone (Geodon Inj) 20 mg IM Q6H PRN; Protocol PRN Reason: Agitation - Constitutional Appears: Non-toxic, No Acute Distress - Head Exam Head Exam: ATRAUMATIC - Eye Exam Eye Exam: absent: Scleral icterus - ENT Exam ENT Exam: Mucous Membranes Moist, Normal Oropharynx - Neck Exam Neck Exam: Normal Inspection - Respiratory Exam Respiratory Exam: Clear to Ausculation Bilateral - Cardiovascular Exam Cardiovascular Exam: +S1, +S2 - GI/Abdominal Exam GI & Abdominal Exam: Soft - Extremities Exam Extremities Exam: absent: Pedal Edema - Neurological Exam Neurological Exam: Alert, Awake, Oriented x3 - Skin Skin Exam: Dry, Warm Assessment and Plan - Assessment and Plan (Free Text) Assessment: 52 year old male with a PMH of a past medical history of depression and anxiety and takes Truvada for PrEP currently in the voluntary psychiatric unit. Infectious disease consultation was requested. Plan: Homosexual with receptive anal sex on truvada for PrEP RPR negative Pending 4th gen HIV test Afebrile No leukocytosis Patient was seen and examined and case to be discussed with attending physician Thank you for the pleasure of participating in the care of this patient <Wai Isidro - Last Filed: 05/12/18 15:35> Objective - Vital Signs/Intake and Output Vital Signs (last 24 hours): Temp Pulse Resp BP Pulse Ox 98.4 F 74 19 125/83 05/12/18 07:00 05/12/18 09:01 05/12/18 07:00 05/12/18 09:01 - Medications Medications: Current Medications Acetaminophen (Tylenol 325mg Tab) 650 mg PO Q6H PRN PRN Reason: Pain, Mild (1-3) Last Admin: 05/10/18 01:53 Dose: 650 mg Al Hydrox/Mg Hydrox/Simethicone (Maalox Plus 30 Ml) 30 ml PO DAILY PRN PRN Reason: Indigestion / Heartburn Aripiprazole (Abilify) 10 mg PO DAILY [facility] Last Admin: 05/12/18 09:02 Dose: 10 mg Aspirin (Aspirin Chewable) 81 mg PO DAILY [facility] Last Admin: 05/12/18 09:02 Dose: 81 mg Dextrose (Dextrose 50% Inj) 0 ml IV STAT PRN; Protocol PRN Reason: Hypoglycemia Protocol Dextrose (Dextrose 5% In Water 1000 Ml) 1,000 mls @ 0 mls/hr IV .Q0M PRN; Protocol PRN Reason: Hypoglycemia Protocol Lisinopril (Zestril) 10 mg PO DAILY [facility] Last Admin: 05/12/18 09:01 Dose: 10 mg Lorazepam (Ativan) 1 mg IM Q6H PRN; Protocol PRN Reason: Anxiety Lorazepam (Ativan) 1 mg PO Q6H PRN; Protocol PRN Reason: Agitation Magnesium Hydroxide (Milk Of Magnesia) 30 ml PO DAILY PRN PRN Reason: Constipation Mirtazapine (Remeron) 15 mg PO HS [facility] Pantoprazole Sodium (Protonix Ec Tab) 40 mg PO 0600 [facility] Last Admin: 05/12/18 06:36 Dose: 40 mg Venlafaxine HCl (Effexor Xr) 150 mg PO DAILY [facility] Last Admin: 05/12/18 09:02 Dose: 150 mg Ziprasidone (Geodon Cap) 20 mg PO Q6H PRN; Protocol PRN Reason: Agitation Last Admin: 05/11/18 21:29 Dose: 20 mg Ziprasidone (Geodon Inj) 20 mg IM Q6H PRN; Protocol PRN Reason: Agitation Attending/Attestation - Attestation I have personally seen and examined this patient.: Yes I have fully participated in the care of the patient.: Yes I have reviewed all pertinent clinical information, including history, physical exam and plan: Yes
--- NOTE | 2018-05-12 15:40 | PCM.PYCHPN ---
Psychiatric Progress Note - Psychiatric Progress Note Patient seen today, length of contact: 30min Patient Chief Complaint: "I did not sleep very well last night...." Problems Identified/Issues Discussed: Risk/benefits and alternatives of medications discussed, suicide/ homicide prevention, past psychiatric h/o, current psychiatric symptoms, medical problems, risk/benefits and alternatives of medications, medications compliance, coping strategies, substance abuse h/o, relapse prevention, importance of follow up with psychiatrist and therapist, discharge plan. Medical Problems: s/p overdose on tylenol Diagnostic Results: Lab Results 05/09/18 07:37: POC Glucose (mg/dL) 84 05/08/18 21:14: POC Glucose (mg/dL) 104 05/08/18 16:19: POC Glucose (mg/dL) 110 05/08/18 12:31: POC Glucose (mg/dL) 86 05/08/18 10:45: Hemoglobin A1c 5.5 05/08/18 08:00: Triglycerides 148, Cholesterol 125 L, LDL Cholesterol Direct 53, HDL Cholesterol 44 05/08/18 08:00: RPR Nonreactive 05/08/18 08:00: Free T4 1.12, TSH 3rd Generation 1.35 05/07/18 21:10: POC Glucose (mg/dL) 290 H Vital Signs Temp Pulse Resp BP 05/09/18 09:41 60 113/72 05/09/18 07:00 97.9 F 60 18 113/72 05/08/18 16:00 79 123/73 05/08/18 08:49 88 120/76 05/08/18 07:00 97.9 F 88 18 120/76 05/07/18 16:30 97.9 F 77 18 119/76 DSM 5 Symptoms Update: Shortly, patient is 52-year old male, self-reported history of major depressive disorder, anxiety disorder, stimulant use disorder, multiple ps ychiatric admissions in the past, treated for suicidal attempts, patient initially was admitted to ICU status post Tylenol overdose, patient was downgraded to the medical side, patient made it clear to psychiatrist filtration plant mechanic that he wanted to end up his life, patient was refused to sign in to the psychiatric inpatient unit initially, patient was screened by [facility], [place], but patient changed his mind during the interview, willing to get better and be admitted to the psychiatric inpatient unit under voluntary status. Please see previous notes for more detailed information. From the medical standpoint in the emergency room patient QTC was prolonged by 15 mm asms, urine drug screen was positive for cannabis as well as opioids, patient had tachycardia, and acetaminophen level was 99. Patient was seen at the female attending, patient presented with improvement of his personal hygiene, wears regular street clothing, patient affect was more reactive, mood congruent, patient complains of insomnia, this typewriter mechanic educated patient about the Remeron, risk/benefits/alternatives discussed, patient is willing to try that medication. Patient reported that she is happy to be alive, reports that from now on he will stay sober, patient was educated about psychosis and effect on brain, patient verbalizes understanding. As per self report, patient is more visible on the unit, pleasant, not psychotic, not agitated compliant with the unit rules and regulations. 05/09/18 Patient hospital conversation with vp digital marketing social media and crm, patient finally admitted that he tried to kill himself because she was feeling paranoid and was scared for his life, patient also felt that somebody is going to kill him, and in order not to be killed by a stranger, patient wanted to kill himself first, t hat is why pt overdosed on medications. Impression: Major depressive disorder as per history Generalized anxiety disorder Stimulant use disorder Stimulants use psychosis Medication Change: Yes (Remeron started for insomnia) Medical Record Reviewed: Yes Consults ordered or reviewed: pt was seen by medical team Mental Status Examination - Cognitive Function Orientation: Person, Place, Situation Memory: Intact Attention: Poor Concentration: Poor Association: WNL Fund of Knowledge: WNL - Mood Mood: Depressed, Anxious - Affect Affect: Flat - Formal Thought Process Formal Thought Process: Paranoia - Suicidal Ideation Suicidal Ideation: No - Homicidal Ideation Homicidal Ideation: No Goal/Treatment Plan - Goal/Treatment Plan Need for Continued Stay: Remain at risks for inpatient hospitalization, Severe depression anxiety, Discharge may exacerbated symptoms, Severe functional impairment Progress Toward Problem(s) and Goals/Treatment Plan: Milieu/structure/supportive therapy SW consultation for discharge plan and social issues Med management: Effexor 150 mg for depression and anxiety Abilify 10 mg daily for mood stabilization and psychosis On 15 mg at nighttime for depression and insomnia As needed medications Family involvement Follow up on labs Will monitor closely Pt was educated about risk/benefits and alternatives of medications, coping strategies (safety plan, suicide prevention), relapse prevention, importance of follow up with psychiatrist and therapist, stay away from drugs/alcohol/smoking Estimated Date of D/C: 05/14/18
[2018-05-13] MEDS: Pantoprazole 40 mg EC Tab PO SCH (06:24)
[2018-05-13 07:22] VITALS: BP 113/68; PULSE 66; RESP 15; TEMP 97.4; O2SAT 98
[2018-05-13] MEDS: Venlafaxine 75 mg ER Cap PO SCH (08:39)
--- NOTE | 2018-05-13 14:38 | PN ---
DATE: 05/13/2018 SUBJECTIVE: The patient is seen in bed, in no acute distress, nontoxic. The patient was seen early this morning. PHYSICAL EXAMINATION: VITAL SIGNS: Temperature is 97, blood pressure is 113/60, respiratory rate of 16. HEENT: Unremarkable. NECK: Supple. LUNGS: Decreased breath sounds. HEART: Normal S1 and S2. ABDOMEN: Soft, nontender. LABORATORY DATA: Reviewed. ASSESSMENT AND PLAN: This is a 52-year-old male, who is seen with past medical history of depression and anxiety, who takes Truvada for pre-exposure prophylaxis, currently in the psychiatric maurer. The patient states that he is going to resume his Truvada upon discharge. He is involved in receptive anal sex. Currently, he is HIV negative. Wai Isidro MD
--- NOTE | 2018-05-13 15:30 | PCM.PYCHDC ---
Mental Status Examination - Mental Status Examination Orientation: Person, Place, Situation, Time Memory: Intact Mood: Neutral Affect: Broad (And mood congruent) Speech: Appropriate Attention: WNL Concentration: WNL Association: WNL Fund of Knowledge: WNL Formal Thought Process: No Impairment Description of patient's judgement and insight: Pt has improved insight into mental and medical illness, pt was compliant with medications and unit rules and regulations, pt was attending therapy groups, was calm, cooperative, socially appropriate, no behavioral incidents, no agitation, no aggression. Psychotic Thoughts and Behaviors: Pt denied v/a/t hallucinations, denied paranoid ideations, pt does not appear to be psychotic, and thought process is goal directed. Suicidal Ideation: No Current Homicidal Ideation?: No Plan: pt adamantly denied thoughts of harming self or others denied intent or plan. Discharge Summary - Discharge Note Reason for Hospitalization: Patient was transferred from the medical floor for evaluation and stabilization as well as observation depressive symptoms and possible suicidal attempt Psychiatric History (includes Medical, Family, Personal Hx): see HPI Laboratory Data: Lab Results 05/10/18 11:26: POC Glucose (mg/dL) 77 05/10/18 07:30: POC Glucose (mg/dL) 77 05/10/18 07:30: HIV 1&2 Ag/Ab, 4th Gen Nonreactive 05/09/18 20:53: POC Glucose (mg/dL) 121 H 05/09/18 15:22: POC Glucose (mg/dL) 106 05/09/18 11:26: POC Glucose (mg/dL) 99 05/09/18 07:37: POC Glucose (mg/dL) 84 05/08/18 21:14: POC Glucose (mg/dL) 104 05/08/18 16:19: POC Glucose (mg/dL) 110 05/08/18 12:31: POC Glucose (mg/dL) 86 05/08/18 10:45: Hemoglobin A1c 5.5 05/08/18 08:00: Triglycerides 148, Cholesterol 125 L, LDL Cholesterol Direct 53, HDL Cholesterol 44 05/08/18 08:00: RPR Nonreactive 05/08/18 08:00: Free T4 1.12, TSH 3rd Generation 1.35 05/07/18 21:10: POC Glucose (mg/dL) 290 H Vital Signs Temp Pulse Resp BP Pulse Ox 05/13/18 08:39 66 113/68 05/13/18 07:21 97.4 F L 66 15 113/68 98 05/12/18 16:33 72 134/80 05/12/18 09:01 74 125/83 05/12/18 07:00 98.4 F 74 19 125/83 05/11/18 16:00 76 119/82 05/11/18 08:40 73 95/61 L 05/11/18 07:00 97.8 F 73 20 95/61 L 05/10/18 15:00 75 16 109/70 05/10/18 09:08 79 113/66 05/10/18 07:00 98.3 F 79 18 113/66 05/10/18 06:47 98.3 F 79 18 113/66 05/09/18 15:56 66 117/70 05/09/18 15:55 66 05/09/18 09:41 60 113/72 05/09/18 07:00 97.9 F 60 18 113/72 05/08/18 16:00 79 123/73 05/08/18 08:49 88 120/76 05/08/18 07:00 97.9 F 88 18 120/76 05/07/18 16:30 97.9 F 77 18 119/76 Consultations:: List each consultation separately and include: 1. Reason for request. 2. Findings. 3. Follow-up Consultations: pt was seen by medical team Please see notes for more detailed information Summary of Hospital Course include:: 1. Description of specific treatment plan utilized for patients during their course of treatmen. 2. Summarize the time- course for resolution of acute symptoms and/or regressed behaviors. 3. Describe issues identified and worked on during hospitalization. 4. Describe medication utilized. 5. Describe medical problems identified and treated. 6. Reassessment of suicide risk Summary of Hospital Course: Shortly, patient is 52-year old male, self-reported history of major depressive disorder, anxiety disorder, stimulant use disorder, multiple psychiatric admissions in the past, treated for suicidal attempts, patient initially was admitted to ICU status post Tylenol overdose, patient was downgraded to the medical side, patient made it clear to psychiatrist aeronautical research engineer that he wanted to end up his life, patient was refused to sign in to the psychiatric inpatient unit initially, patient was screened by [facility], but patient changed his mind during the interview, willing to get better and be admitted to the psychiatric inpatient unit under voluntary status. Please see previous notes for more detailed information. From the medical standpoint in the emergency room patient QTC was prolonged by 15 mm asms, urine drug screen was positive for cannabis as well as opioids, patient had tachycardia, and acetaminophen level was 99. Patient was stable enough to be transferred to the psychiatric inpatient unit May 07, 2018. Please see admission note for more detailed information. Patient will stabilize on the following medications: Effexor extended release 150 mg daily Remeron 10 mg at the nighttime for depression and insomnia Abilify 10 mg daily for mood stabilization as well as for depression/psychosis Patient tolerated medications well, no side effects observed or reported, aims 0, no EPS. Patient was seen by medical team, consult appreciated. Over the course of this hospitalization pt was attending groups, pt also had medication management, had therapeutic milieu. Overall pt improved significantly, pt's affect became brighter, pt became less depressed, has realistic future oriented plans, pt also does not appear to be psychotic, or anxious, pt was socially appropriate, no behavioral issues, pts insight improved as well and soon pt deemed to be ready for discharge. At the time of the discharge patient pose no imminent danger to self or others, will be following up at [facility] outpatient clinic, patient was recommended to follow up with dual diagnosis program, information about fol low up appointment, time and address provided to the pt, (see note for more detailed information). It is a patient responsibility to follow up with outpatient clinic, PMD as well as specialists In case patient will need to obtain results of studies pending at discharge, patient was provided with contact information of Psychiatric Inpatient unit [phone] as well as Medical Record Department [phone], as well as [facility] Manager Utilization team [phone]. Nicotine patch was offered, but patient refused Counseling about smoking/drugs/alcohol cessation provided AA meetings as well as [facility] smoking cessation treatment program information was provided by the pt was provided with prescriptions (see medication reconciliation form) Pt was educated about safety plan in case of worsening of symptoms or in case of suicidal or homicidal ideation call 911 or go to the nearest ER, also was educated to take meds as prescribed and stay away from drugs, pt verbalized understanding. Lab Results 05/08/18 08:00: Triglycerides 148, Cholesterol 125 L, LDL Cholesterol Direct 53, HDL Cholesterol 44 05/08/18 08:00: Free T4 1.12, TSH 3rd Generation 1.35 05/07/18 21:10: POC Glucose (mg/dL) 290 H Vital Signs Temp Pulse Resp BP 05/08/18 08:49 88 120/76 05/08/18 07:00 97.9 F 88 18 120/76 05/07/18 16:30 97.9 F 77 18 119/76 - Diagnosis (1) MDD (major depressive disorder) Status: Chronic Priority: High (2) JAIR (generalized anxiety disorder) Status: Chronic Priority: High (3) Stimulant use disorder Status: Chronic Priority: High - Final Diagnosis (DSM 5) Condition upon Discharge: GOOD Disposition: HOME/ ROUTINE Follow-up Treatment Plan: At the time of the discharge patient pose no imminent danger to self or others, will be following up at [facility] outpatient clinic, patient was recommended to follow up with dual diagnosis program, information about follow up appointment, time and address provided to the pt, (see note for more detailed information). It is a patient responsibility to follow up with outpatient clinic, PMD as well as specialists In case patient will need to obtain results of studies pending at discharge, patient was provided with contact information of Psychiatric Inpatient unit [phone] as well as Medical Record Department [phone], as well as [facility] Manager Utilization team [phone]. Nicotine patch was offered, but patient refused Counseling about smoking/drugs/alcohol cessation provided AA meetings as well as [facility] smoking cessation treatment program information was provided by the pt was provided with prescriptions (see medication reconciliation form) Pt was educated about safety plan in case of worsening of symptoms or in case of suicidal or homicidal ideation call 911 or go to the nearest ER, also was educated to take meds as prescribed and stay away from drugs, pt verbalized understanding. Prescriptions/Medication Reconciliation: ARIPiprazole [Abilify] 10 mg PO DAILY #14 tab Aspirin [Aspirin Chewable] 81 mg PO DAILY #7 chew Lisinopril [Zestril] 10 mg PO DAILY #7 tab Mirtazapine [Remeron] 15 mg PO HS #14 tab Pantoprazole [Protonix EC Tab] 40 mg PO 0600 #7 ect Venlafaxine [Effexor XR] 150 mg PO DAILY #14 cer - Smoking Cessation Smoking Cessation Medication prescribed: No Reason for not providing: Patient refused - Antipsychotic Medications Pt discharged on 2 or more routine antipsychotic medications: No
--- NOTE | 2018-05-13 16:37 | CP.PCM.PN ---
<Howard Archibald - Last Filed: 05/13/18 16:34> Subjective - Date & Time of Evaluation Date of Evaluation: 05/13/18 Time of Evaluation: 09:40 - Subjective Subjective: Howard Archibald D.O. PGY-3, Internal Medicine Resident, Infectious Disease Progress Note 52 year old male with a PMH of a past medical history of depression and anxiety and takes Truvada for PrEP currently in the voluntary psychiatric unit. Inf ectious disease consultation was requested. Patient was seen and examined in psych unit. Overall no complaints. Hoping to get DC'ed today. Objective - Vital Signs/Intake and Output Vital Signs (last 24 hours): Temp Pulse Resp BP Pulse Ox 97.4 F L 66 15 113/68 98 05/13/18 07:21 05/13/18 08:39 05/13/18 07:21 05/13/18 08:39 05/13/18 07:21 - Constitutional Appears: Non-toxic, No Acute Distress - Head Exam Head Exam: NORMOCEPHALIC - Eye Exam Eye Exam: EOMI. absent: Scleral icterus - ENT Exam ENT Exam: Mucous Membranes Moist - Neck Exam Neck Exam: Normal Inspection - Respiratory Exam Respiratory Exam: Clear to Ausculation Bilateral. absent: Wheezes - Cardiovascular Exam Cardiovascular Exam: RRR, +S1, +S2 - GI/Abdominal Exam GI & Abdominal Exam: Soft - Extremities Exam Extremities Exam: absent: Calf Tenderness, Tenderness - Neurological Exam Neurological Exam: Alert, Awake, Oriented x3 - Skin Skin Exam: Dry, Warm Assessment and Plan - Assessment and Plan (Free Text) Assessment: 52 year old male with a PMH of a past medical history of depression and anxiety and takes Truvada for PrEP currently in the voluntary psychiatric unit. Infectious disease consultation was requested. Plan: Homosexual with receptive anal sex on truvada for PrEP RPR negative HIV negative Afebrile No leukocytosis Encouraged to maintain compliance with truvada Patient was seen and examined and case to be discussed with attending physician Thank you for the pleasure of participating in the care of this patient <Wai Isidro - Last Filed: 05/14/18 07:15> Objective - Vital Signs/Intake and Output Vital Signs (last 24 hours): Temp Pulse Resp BP Pulse Ox 97.4 F L 66 15 113/68 98 05/13/18 07:21 05/13/18 08:39 05/13/18 07:21 05/13/18 08:39 05/13/18 07:21 Attending/Attestation - Attestation I have personally seen and examined this patient.: Yes I have fully participated in the care of the patient.: Yes I have reviewed all pertinent clinical information, including history, physical exam and plan: Yes
== END 2018-05-13 12:51 | disposition home or self-care (01) | DRG 426 ==
LOC: PSYC 16:13 → UNDODISIN 20:59
PROVIDERS: ADMIT Psychiatry & Neurology Psychiatry; ATTEND Psychiatry & Neurology Psychiatry
DX: F32.9 Major depressive disorder, single episode, unspecified (principal); F12.90 Cannabis use, unspecified, uncomplicated; F15.159 Other stimulant abuse with stimulant-induced psychotic disorder, unspecified; F17.210 Nicotine dependence, cigarettes, uncomplicated; F41.0 Panic disorder [episodic paroxysmal anxiety]; F41.1 Generalized anxiety disorder; G25.81 Restless legs syndrome; G47.00 Insomnia, unspecified; G89.29 Other chronic pain; I10 Essential (primary) hypertension; J45.909 Unspecified asthma, uncomplicated; M79.7 Fibromyalgia; Z79.899 Other long term (current) drug therapy; Z81.8 Family history of other mental and behavioral disorders